=== PATIENT | male | born 1950 | race Caucasian/White ===

== ENCOUNTER 2016-10-26 12:03 | Inpatient (IN) | payer MEDICARE, OTHER ==
[2016-10-26] MEDS ORDERED: DILTIAZEM 5 MG/ML 5 ML VIAL IVP STA ×2 (13:31→15:03)
--- NOTE | 2016-10-26 13:33 | ED ---
General Adult HPI - General Chief complaint: Arrhythmia/Palpitations Stated complaint: afib Time Seen by Provider: 10/26/16 13:19 Source: patient, RN notes reviewed Mode of arrival: wheelchair Limitations: no limitations - History of Present Illness Initial comments: Patient is a pleasant 65-year-old male presenting to the emergency department complaining of tachycardia. Onset was when he woke this morning. Symptoms have been stable. No chest pain. No dyspnea. Patient has had similar symptoms twice previously associated with atrial flutter. Patient states in 2013 who did have cardiac ablation. Patient states at original onset around 2008 he was cardioverted. Patient did check his monitor at home with a heart rate of 120. - Related Data Home Medications Medication Instructions Recorded Confirmed Aspirin 325 mg PO DAILY 10/26/16 10/26/16 Atorvastatin [Lipitor] 10 mg PO DAILY 10/26/16 10/26/16 Fish Oil/Dha/Epa [Fish Oil 1,200 2 cap PO DAILY 10/26/16 10/26/16 mg Fish Oil] Lisinopril [Zestril] 10 mg PO DAILY 10/26/16 10/26/16 Multivitamins, Thera [Multivitamin 1 tab PO DAILY 10/26/16 10/26/16 (formulary)] Allergies Allergy/AdvReac Type Severity Reaction Status Date / Time No Known Allergies Allergy Verified 10/26/16 13:32 Review of Systems ROS Statement: Those systems with pertinent positive or pertinent negative responses have been documented in the HPI. ROS Other: All systems not noted in ROS Statement are negative. Constitutional: Denies: fever Eyes: Denies: eye pain ENT: Denies: ear pain Respiratory: Denies: cough, dyspnea Cardiovascular: Reports: palpitations. Denies: chest pain Endocrine: Denies: fatigue Gastrointestinal: Denies: abdominal pain Genitourinary: Denies: urgency Musculoskeletal: Denies: back pain Skin: Denies: rash Neurological: Denies: weakness Past Medical History Past Medical History: Atrial Flutter, Cancer, Hyperlipidemia, Hypertension Additional Past Medical History / Comment(s): squamous cell carcinoma History of Any Multi-Drug Resistant Organisms: None Reported Past Surgical History: Ablation, Hernia Repair Past Psychological History: No Psychological Hx Reported Smoking Status: Never smoker Past Alcohol Use History: None Reported Past Drug Use History: None Reported General Exam Limitations: no limitations General appearance: alert, in no apparent distress Head exam: Present: atraumatic Eye exam: Present: normal appearance, PERRL ENT exam: Present: normal oropharynx Neck exam: Present: normal inspection Respiratory exam: Present: normal lung sounds bilaterally Cardiovascular Exam: Present: tachycardia, irregular rhythm Expanded Peripheral pulses: 2+: Radial (R), Radial (L), Dorsalis Pedis (R), Dorsalis Pedis (L) GI/Abdominal exam: Present: soft. Absent: tenderness Extremities exam: Present: normal inspection. Absent: pedal edema, calf tenderness Neurological exam: Present: alert Psychiatric exam: Present: normal affect, normal mood Skin exam: Present: normal color Course Vital Signs 10/26/16 10/26/16 10/26/16 12:25 13:40 13:49 Temperature 98.2 F Pulse Rate 122 H 122 H 122 H Respiratory 18 16 Rate Blood Pressure 119/84 143/101 121/92 O2 Sat by Pulse 98 100 Oximetry EKG Findings - EKG Comments: EKG Findings:: Neuro complex tachycardia 122. There does appear to be minimal variation in QRS intervals. TX 176. QRS 122. QT 336. QTc 478. Left axis. Right ventricular conduction delay. LVH. No acute ST change. Medical Decision Making - Medical Decision Making Patient reevaluated and resting comfortably in bed. Patient states heart rate did improve however is still in the low 120s at this point. Patient updated and results and plan. Case discussed with Dr. Steve, who will admit for hospital call. Cardiology will be consulted. Patient will be started on Cardizem drip. Heparin held at this time pending further evaluation of the aorta. - Lab Data Result diagrams: 10/26/16 12:42 10/26/16 12:42 Lab Results 10/26/16 10/26/16 10/26/16 Range/Units 12:42 12:42 12:42 WBC 5.5 (3.8-10.6) k/uL RBC 5.13 (4.30-5.90) m/uL Hgb 15.4 (13.0-17.5) gm/dL Hct 43.7 (39.0-53.0) % MCV 85.1 (80.0-100.0) fL MCH 30.1 (25.0-35.0) pg MCHC 35.3 (31.0-37.0) g/dL RDW 12.7 (11.5-15.5) % Plt Count 187 (150-450) k/uL Neutrophils % 54 % Lymphocytes % 33 % Monocytes % 8 % Eosinophils % 1 % Basophils % 0 % Neutrophils # 3.0 (1.3-7.7) k/uL Lymphocytes # 1.8 (1.0-4.8) k/uL Monocytes # 0.5 (0-1.0) k/uL Eosinophils # 0.0 (0-0.7) k/uL Basophils # 0.0 (0-0.2) k/uL PT (9.0-12.0) sec INR (<1.1) APTT (22.0-30.0) sec Sodium 143 (137-145) mmol/L Potassium 4.7 (3.5-5.1) mmol/L Chloride 107 (98-107) mmol/L Carbon Dioxide 25 (22-30) mmol/L Anion Gap 11 mmol/L BUN 15 (9-20) mg/dL Creatinine 0.90 (0.66-1.25) mg/dL Est GFR (MDRD) Af Amer >60 (>60 ml/min/1.73 sqM) Est GFR (MDRD) Non-Af >60 (>60 ml/min/1.73 sqM) Glucose 81 (74-99) mg/dL Calcium 9.7 (8.4-10.2) mg/dL Magnesium 2.1 (1.6-2.3) mg/dL Total Bilirubin 0.6 (0.2-1.3) mg/dL AST 24 (17-59) U/L ALT 28 (21-72) U/L Alkaline Phosphatase 57 (38-126) U/L Total Creatine Kinase 154 (55-170) U/L CK-MB (CK-2) 1.8 (0.0-2.4) ng/mL CK-MB (CK-2) Rel Index 1.2 Troponin I 0.018 (0.000-0.034) ng/mL Total Protein 7.9 (6.3-8.2) g/dL Albumin 4.5 (3.5-5.0) g/dL TSH 0.811 (0.465-4.680) mIU/L Free T4 1.19 (0.78-2.19) ng/dL Free T3 pg/mL 4.3 (2.8-5.3) pg/ml 10/26/16 Range/Units 12:42 WBC (3.8-10.6) k/uL RBC (4.30-5.90) m/uL Hgb (13.0-17.5) gm/dL Hct (39.0-53.0) % MCV (80.0-100.0) fL MCH (25.0-35.0) pg MCHC (31.0-37.0) g/dL RDW (11.5-15.5) % Plt Count (150-450) k/uL Neutrophils % % Lymphocytes % % Monocytes % % Eosinophils % % Basophils % % Neutrophils # (1.3-7.7) k/uL Lymphocytes # (1.0-4.8) k/uL Monocytes # (0-1.0) k/uL Eosinophils # (0-0.7) k/uL Basophils # (0-0.2) k/uL PT 10.4 (9.0-12.0) sec INR 1.0 (<1.1) APTT 26.4 (22.0-30.0) sec Sodium (137-145) mmol/L Potassium (3.5-5.1) mmol/L Chloride (98-107) mmol/L Carbon Dioxide (22-30) mmol/L Anion Gap mmol/L BUN (9-20) mg/dL Creatinine (0.66-1.25) mg/dL Est GFR (MDRD) Af Amer (>60 ml/min/1.73 sqM) Est GFR (MDRD) Non-Af (>60 ml/min/1.73 sqM) Glucose (74-99) mg/dL Calcium (8.4-10.2) mg/dL Magnesium (1.6-2.3) mg/dL Total Bilirubin (0.2-1.3) mg/dL AST (17-59) U/L ALT (21-72) U/L Alkaline Phosphatase (38-126) U/L Total Creatine Kinase (55-170) U/L CK-MB (CK-2) (0.0-2.4) ng/mL CK-MB (CK-2) Rel Index Troponin I (0.000-0.034) ng/mL Total Protein (6.3-8.2) g/dL Albumin (3.5-5.0) g/dL TSH (0.465-4.680) mIU/L Free T4 (0.78-2.19) ng/dL Free T3 pg/mL (2.8-5.3) pg/ml - Radiology Data Radiology results: image reviewed (Chest x-ray shows no acute process. Prominent aortic knob.) Critical Care Time Critical Care Time: Yes Total Critical Care Time: 33 Disposition Clinical Impression: Atrial fibrillation with RVR Disposition: ADMITTED IP TO THIS HOSP Referrals: Fredrick Vasquez DO [Primary Care Provider] - 1-2 days Time of Disposition: 14:59
[2016-10-26 13:52] LABS: Basophils % (A) 0 %; CH 29.8; CHCM 35.2; Eosinophils % (A) 1 %; HCT 43.7 % (39.0-53.0); HDW 2.83; HGB 15.4 gm/dL (13.0-17.5); Luc # (Auto) 0.18; Luc % (Auto) 3; Lymphocytes # (A) 1.8 k/uL (1.0-4.8); Lymphocytes % (A) 33 %; MCH 30.1 pg (25.0-35.0); MCHC 35.3 g/dL (31.0-37.0); MCV 85.1 fL (80.0-100.0); Mean Platelet Volume 8.1; Monocytes # (A) 0.5 k/uL (0-1.0); Monocytes % (A) 8 %; Neutrophils % (A) 54 %; RBC 5.13 m/uL (4.30-5.90); RDW 12.7 % (11.5-15.5); WBC 5.5 k/uL (3.8-10.6); WBC (Perox) 5.65
[2016-10-26 13:59] LABS: Partial Thromboplastin Time 26.4 sec (22.0-30.0); Prothrombin Time 10.4 sec (9.0-12.0)
[2016-10-26 14:04] LABS: ALT 28 U/L (21-72); AST 24 U/L (17-59); Alkaline Phosphatase 57 U/L (38-126); Anion Gap 11 mmol/L; Blood Urea Nitrogen 15 mg/dL (9-20); Calcium 9.7 mg/dL (8.4-10.2); Carbon Dioxide 25 mmol/L (22-30); Chloride 107 mmol/L (98-107); Glucose 81 mg/dL (74-99); Magnesium 2.1 mg/dL (1.6-2.3); Non-African American GFR(MDRD) >60 (>60 ml/min/1.73 sqM); Potassium 4.7 mmol/L (3.5-5.1); Sodium 143 mmol/L (137-145); Total Bilirubin 0.6 mg/dL (0.2-1.3); Total Protein 7.9 g/dL (6.3-8.2)
[2016-10-26 14:24] LABS: Creatine Kinase MB 1.8 ng/mL (0.0-2.4); Troponin I 0.018 ng/mL (0.000-0.034)
--- NOTE | 2016-10-26 14:39 | XR ---
EXAMINATION TYPE: XR chest 2V DATE OF EXAM: 10/26/2016 2:34 PM COMPARISON: NONE TECHNIQUE: PA and lateral views submitted. HISTORY: A. Fib FINDINGS: The lungs are clear and there is no pneumothorax, pleural effusion, or focal pneumonia. Hypertrophi c change of the spine. Mild ectasia of the thoracic aorta. Arthropathy of the AC joints. IMPRESSION: 1. No acute process. There is ectasia of the aorta. Aortic knob measure somewhat prominent aneurysmal dilation in the differential.
[2016-10-26] MEDS ORDERED: NITROGLYCERIN SL TABS 0.4 MG TAB SUBLINGUAL PRN (15:00)
[2016-10-26] MEDS ORDERED: DILTIAZEM 125 MG in SODIUM CHLORIDE 0.9% 100 ML IV ONE (15:03)
[2016-10-26] MEDS ORDERED: RX INFO: IV CONTRAST WAS GIVEN 1 EACH MISC MISCELLANE PRN (15:03)
--- NOTE | 2016-10-26 16:17 | CT ---
EXAMINATION TYPE: CT angio chest DATE OF EXAM: 10/26/2016 COMPARISON: NONE HISTORY: History of Afib. Chest discomfort CT DLP: 1024.9 mGycm Automated exposure control for dose reduction was used. CONTRAST: CTA scan of the thorax is performed with IV Contrast, patient injected with 100 mL of Omnipaque 350, pulmonary embolism protocol. MIP images are created and reviewed. 3D reconstructed images are creat ed on an independent workstation and reviewed. FINDINGS: LUNGS: The lungs are grossly clear, there is no concerning parenchymal mass or nodule identified. T here is no pleural effusion or pneumothorax seen. The tracheobronchial tree is patent. AORTA: No additional significant abnormality is seen. MEDIASTINUM: There is satisfactory enhancement of the pulmonary artery and its branches, there is no CT evidence for pulmonary embolism. There are no greater than 1 cm hilar or mediastinal lymph nodes. No pericardial effusion is seen. OTHER: No additional significant abnormality is seen. Proximal descending aorta measures approximately 3.5 cm, ascending aorta measures 3.3 cm. IMPRESSION: PULMONARY EMBOLISM IS NOT EVIDENT. AORTIC ECTASIA.
[2016-10-26] MEDS ORDERED: HEPARIN SODIUM,PORCINE 5,000 UNIT/ML 1 ML VIAL IV PRN (17:03)
[2016-10-26] MEDS ORDERED: HEPARIN SODIUM,PORCINE/D5W PMX 25,000 UNIT in DEXTROSE/WATER 1 500ML.BAG IV SCH (18:00)
[2016-10-26] MEDS ORDERED: NITROGLYCERIN OINT 1 INCH/GM PACKET TOPICAL SCH (18:00)
[2016-10-26 18:12] LABS: Basophils % (A) 0 %; CH 29.8; CHCM 33.7; Eosinophils % (A) 1 %; HCT 47.2 % (39.0-53.0); HDW 2.66; HGB 15.6 gm/dL (13.0-17.5); Luc # (Auto) 0.16; Luc % (Auto) 3; Lymphocytes # (A) 1.9 k/uL (1.0-4.8); Lymphocytes % (A) 33 %; MCH 29.4 pg (25.0-35.0); MCHC 33.1 g/dL (31.0-37.0); MCV 88.8 fL (80.0-100.0); Mean Platelet Volume 7.4; Monocytes # (A) 0.4 k/uL (0-1.0); Monocytes % (A) 6 %; Neutrophils # (A) 3.5 k/uL (1.3-7.7); Neutrophils % (A) 58 %; RBC 5.32 m/uL (4.30-5.90); RDW 12.8 % (11.5-15.5); WBC 5.9 k/uL (3.8-10.6); WBC (Perox) 5.91
[2016-10-26 18:13] LABS: INR 1.1 (<1.1); Partial Thromboplastin Time 25.9 sec (22.0-30.0); Prothrombin Time 10.9 sec (9.0-12.0)
[2016-10-26 18:36] LABS: Creatine Kinase MB 1.8 ng/mL (0.0-2.4); Troponin I 0.028 ng/mL (0.000-0.034)
--- NOTE | 2016-10-26 22:10 | HP ---
Patient is a 65-year-old who came in with complaints of tachycardia and irregular rhythm. Patient has history of atrial fibrillation, underwent ablation procedure by [facility] cardiology group. The patient's symptoms started at 8:00 a.m. today., Patient checked his pulse and patient was found to have rapid heart rate and came to the ER. Patient was found to be in atrial fibrillation with rapid ventricular rate. Patient denied any dehydration. Denied any fever, chills. Patient denied any nausea, vomiting, abdominal pain. Patient denied any pain signs or symptoms of sepsis, including fever or chills, cough or dysuria. Patient is on aspirin at home. The patient is 65 years old and does not appear to have any congestive heart failure history and his CHADS-VASc score appears to be around 1, the risk factor being hypertension only. Patient was started on Cardizem. Patient is presently on 5 mg of Cardizem. Patient will be started on heparin drip at low intensity and Cardiology will be consulted. REVIEW OF SYSTEMS: CONSTITUTIONAL: No fever, no malaise, no fatigue. HEENT: No recent visual problems or hearing problems. Denied any sore throat. CARDIOVASCULAR: As described in HPI. Patient denied any chest pain. Patient is on nitro patch, which will be discontinued. Patient denied any lightheadedness at this point of time. PULMONARY: No shortness of breath, no cough, no hemoptysis. GASTROINTESTINAL: No diarrhea, no nausea, no vomiting, no abdominal pain. Normoactive bowel sounds. NEUROLOGICAL: No headaches, no weakness, no numbness. HEMATOLOGICAL: Denies any bleeding or petechiae. GENITOURINARY: Denies any burning micturition, frequency, or urgency. MUSCULOSKELETAL/RHEUMATOLOGICAL: Denies any joint pain, swelling, or any muscle pain. ENDOCRINE: Denies any polyuria or polydipsia. The rest of the 14 point review of systems is negative. Home medications include: 1. Aspirin. 2. Atorvastatin. 3. Lisinopril. 4. Multivitamin supplementation. No known allergies. Past medical history is significant for atrial fibrillation, hyperlipidemia, hypertension, history of skin squamous cell carcinoma which is in remission. Patient has cardiac ablation, hernia repair. SOCIAL HISTORY: Denied any smoking, alcohol abuse or any drug abuse. FAMILY HISTORY: Significant for cancer in family. PHYSICAL EXAMINATION: VITAL SIGNS: Temperature 98.3, pulse of 104, respiratory rate of 16, blood pressure is 122/84, saturating at 98% on room air. GENERAL: The patient is alert and oriented x3, not in any acute distress. Well developed, well nourished. HEENT: Pupils are round and equally reacting to light. EOMI. No scleral icterus. No conjunctival pallor. Normocephalic, atraumatic. No pharyngeal erythema. No thyromegaly. CARDIOVASCULAR: S1 and S2 present. Patient is irregular rate, irregular rhythm, tachycardic. No murmurs, rubs or gallops are appreciated. PULMONARY: Chest is clear to auscultation, no wheezing or crackles. ABDOMEN: Soft, nontender, nondistended, normoactive bowel sounds. No palpable organomegaly. MUSCULOSKELETAL: No joint swelling or deformity. EXTREMITIES: No cyanosis, clubbing, or pedal edema. NEUROLOGICAL: Gross neurological examination did not reveal any focal deficits. SKIN: No rashes. CBC, CMP, CT angio of the chest are essentially within normal limits and CT angio of chest did not show any pulmonary embolism or pneumonic process. ASSESSMENT AND PLAN: 1. Atrial fibrillation. Precipitating factor is unknown. Management as mentioned above. 2. Hyperlipidemia. 3. Hypertension. Hold off on lisinopril, as patient is on Cardizem and blood pressure is expected to go down. Continue with the Lipitor. 4. Patient will be started on anticoagulation. Patient's symptoms are less than 12 hours' duration. Symptom onset is around 8:00 a.m.
[2016-10-27 01:49] LABS: Creatine Kinase MB 2.1 ng/mL (0.0-2.4); Troponin I 0.02 ng/mL (0.000-0.034)
[2016-10-27] MEDS: ATORVASTATIN 10 MG TAB PO SCH (08:25)
[2016-10-27 08:43] LABS: Basophils % (A) 0 %; CH 29.4; CHCM 33.2; Eosinophils # (A) 0.1 k/uL (0-0.7); Eosinophils % (A) 1 %; HCT 45.9 % (39.0-53.0); HDW 2.66; HGB 15.2 gm/dL (13.0-17.5); Luc # (Auto) 0.15; Luc % (Auto) 3; Lymphocytes # (A) 1.9 k/uL (1.0-4.8); Lymphocytes % (A) 37 %; MCH 29.4 pg (25.0-35.0); MCHC 33.1 g/dL (31.0-37.0); MCV 88.9 fL (80.0-100.0); Mean Platelet Volume 7.3; Monocytes # (A) 0.2 k/uL (0-1.0); Monocytes % (A) 4 %; Neutrophils # (A) 2.8 k/uL (1.3-7.7); Neutrophils % (A) 54 %; RBC 5.16 m/uL (4.30-5.90); RDW 12.8 % (11.5-15.5); WBC 5.1 k/uL (3.8-10.6); WBC (Perox) 4.98
[2016-10-27] MEDS ORDERED: ASPIRIN 325 MG TAB PO SCH (09:00)
--- NOTE | 2016-10-27 09:11 | ECHOF ---
Referral Reason:a fib MEASUREMENTS -------- HEIGHT: 177.8 cm WEIGHT: 104.3 kg BP: 133/57 RVIDd: 3.0 cm (< 3.3) IVSd: 1.4 cm (0.6 - 1.1) LVIDd: 4.7 cm (3.9 - 5.3) LVPWd: 1.4 cm (0.6 - 1.1) IVSs: 1.9 cm LVIDs: 2.8 cm LVPWs: 1.7 cm LA Diam: 3.8 cm (2.7 - 3.8) LAESV Index (A-L): 21.69 ml/m Ao Diam: 4.1 cm (2.0 - 3.7) AV Cusp: 2.5 cm (1.5 - 2.6) MV EXCURSION: 18.395 mm (> 18.000) MV EF SLOPE: 141 mm/s (70 - 150) EPSS: 0.5 cm RAP: 5.00 mmHg RVSP: 22.27 mmHg FINDINGS -------- Atrial fibrillation. This was a technically difficult study with suboptimal apical views. The left ventricular size is normal. There is moderate concentric left ventricular hypertrophy. Overall left ventricular systolic function is mildly impaired with, an EF between 45 - 50 %. The right ventricle is normal in size and function. Normal LA size by volume 22+/-6 ml/m2. The right atrium is normal in size. 1.5mg of Definity was utilized for enhancement of images The aortic valve is trileaflet and appears structurally normal. The mitral valve is normal. There is trace mitral regurgitation. Mild tricuspid regurgitation present. Right ventricular systolic pressure is normal at < 35 mmHg. Trace/mild (physiologic) pulmonic regurgitation. The aortic root is dilated measuring 4.1cm. Normal inferior vena cava with normal inspiratory collapse consistent with estimated right atrial pressure of 5 mmHg. There is no pericardial effusion. CONCLUSIONS -------- 1. Atrial fibrillation. 2. There is trace mitral regurgitation. 3. Mild tricuspid regurgitation present. 4. Right ventricular systolic pressure is normal at < 35 mmHg. 5. Trace/mild (physiologic) pulmonic regurgitation. 6. The aortic root is dilated measuring 4.1cm. 7. There is no pericardial effusion. 8. This was a technically difficult study with suboptimal apical views. 9. The left ventricular size is normal. 10. There is moderate concentric left ventricular hypertrophy. 11. Overall left ventricular systolic function is mildly impaired with, an EF between 45 - 50 %. 12. Normal LA size by volume 22+/-6 ml/m2. 13. 1.5mg of Definity was utilized for enhancement of images 14. The aortic valve is trileaflet and appears structurally normal. 15. The mitral valve is normal. POLYGRAPH EXAMINER: Gretel Melgar RDCS
[2016-10-27 09:32] LABS: Cholesterol 161 mg/dL (<200); HDL Cholesterol 54 mg/dL (40-60); Triglycerides 89 mg/dL (<150)
--- NOTE | 2016-10-27 11:03 | CONS ---
DATE OF CONSULTATION: Electrophysiology consultation. Mr. Yaw Brewster is a 65-year-old male patient who presented with palpitations. His 12-lead ECG showed an atrial tachycardia with cycle length of about 240 ms, upright atrial electrograms in V1, upright in the inferior leads, bifid in lead I, bifid negative in aVR and positive in all precordial leads. He denies any chest discomfort. No shortness of breath. No tiredness, fatigue. The only symptom is palpitations and he recognizes because he has had the arrhythmia before. Past medical history of atrial flutter, status post ablation by ( ) 2013. PAST MEDICAL HISTORY: He denies any diabetes. He does have dyslipidemia and is on atorvastatin. He has a history of hypertension and is on lisinopril. He also had difficult rate control, but he would also slow down quite on AV node blocking drugs and he has atrial flutter, which actually brought to the hospital and is quite symptomatic. He states he was on metoprolol at a very low dose. I have asked him to get the dose and the exact dose from home and I am starting 12.5 mg p.o. b.i.d. and ( ) we should try to stop the ( ). REVIEW OF SYSTEMS: No fever, chills or rigors. No cough or expectoration. No nausea, vomiting or diarrhea. No hematuria or dysuria. No strokes or seizures. No skin lesions or musculoskeletal complaints. On examination, his blood pressure is 124/73 mmHg, heart rate in the 50s and 60s, irregular. He is afebrile, 97 degrees Fahrenheit. Head and neck examination is normal. Heart sounds are irregular but normal. No murmurs, no gallops. Breath sounds are normal. No rhonchi. No crackles. Extremities are warm, no edema. IMPRESSION: 1. History of atrial flutter, status post ablation, by Dr. Do ) in 2013 in [facility]. 2. Patient presenting with an atrial tachycardia with a cycle length of about 240 ms. 3. Hypertension. 4. Age over 65. 5. PATRIZIA VASC score of 2. 6. Dyslipidemia, on treatment. SUGGEST: 1. From electrophysiology standpoint, his PATRIZIA VASC score is 2 and therefore he is a candidate for anticoagulation with Coumadin or one of the newer agents. Aspirin is not indicated. I will start him on Eliquis 5 mg twice daily. This is a life-long recommendation. 2. Rate control of this and anticoagulation and I would recommend an EP study and ablation for the atrial tachycardia, rather than any drug therapy. I would not cardiovert this gentleman. This tachycardia needs to be mapped. 3. I have asked him to get the EKG of the atrial flutter he experienced 2013 to see if he had the similar morphology or not.
[2016-10-27] MEDS: APIXABAN 5 MG TAB PO SCH ×2 (11:16→20:05)
[2016-10-27] MEDS: METOPROLOL TARTRATE 12.5 MG TAB PO SCH ×2 (11:16→20:05)
--- NOTE | 2016-10-27 19:33 | PN ---
Patient is admitted with atrial fibrillation with rapid ventricular rate. Patient's heart rate is not well controlled yet and patient was started on beta carola today by cardiology and patient was started on Eliquis and patient's ejection fraction has come down a little bit which is now 45 to 50%. Hopefully this is temporary. Although patient is not in congestive heart failure exacerbation. Temporary depressed ejection fraction can be from atrial fibrillation itself. REVIEW OF SYSTEMS: CARDIOVASCULAR: No chest pain, no orthopnea, no PND, no palpitations. PULMONARY: Denied any shortness of breath. No cough or hemoptysis. GASTROINTESTINAL: No diarrhea, nausea or vomiting. No abdominal pain. Normoactive bowel sounds. NEUROLOGIC: No headaches, no weakness, no numbness. Medications were reviewed. PHYSICAL EXAMINATION: VITAL SIGNS: Temperature 99.2, pulse 32, respiratory rate of 16, blood pressure is 119/66, saturating at 97% on room air. GENERAL: The patient is alert and oriented x3, not in any acute distress. Well developed, well nourished. HEENT: Pupils are round and equally reacting to light. EOMI. No scleral icterus. No conjunctival pallor. Normocephalic, atraumatic. No pharyngeal erythema. No thyromegaly. CARDIOVASCULAR: No murmurs, rubs, or gallops. I did not appreciate any JVD. Irregularly irregular rhythm. Tachycardic. PULMONARY: Chest is clear to auscultation, no wheezing or crackles. ABDOMEN: Soft, nontender, nondistended, normoactive bowel sounds. No palpable organomegaly. MUSCULOSKELETAL: No joint swelling or deformity. EXTREMITIES: No cyanosis, clubbing, or pedal edema. NEUROLOGICAL: Gross neurological examination did not reveal any focal deficits. SKIN: No rashes. LABORATORY DATA: CBC, basic metabolic profile essentially within normal limits. His LDL is 89. ASSESSMENT AND PLAN: 1. Atrial fibrillation with rapid ventricular rate, management as mentioned above. 2. Congestive heart failure, possible acute systolic dysfunction from atrial fibrillation itself and hopefully it will improve down the line. 3. Hyperlipidemia. 4. Hypertension. Regarding hypertension, because blood pressure is on the low normal side, because of atrial fibrillation, we will hold off on Lisinopril.
[2016-10-28 06:13] LABS: Basophils % (A) 0 %; CH 29.4; CHCM 33.6; Eosinophils # (A) 0.1 k/uL (0-0.7); Eosinophils % (A) 2 %; HCT 43.7 % (39.0-53.0); HDW 2.62; HGB 14.4 gm/dL (13.0-17.5); Luc # (Auto) 0.14; Luc % (Auto) 3; Lymphocytes # (A) 2.4 k/uL (1.0-4.8); Lymphocytes % (A) 45 %; MCV 87.8 fL (80.0-100.0); Mean Platelet Volume 7.3; Monocytes # (A) 0.4 k/uL (0-1.0); Monocytes % (A) 8 %; Neutrophils # (A) 2.2 k/uL (1.3-7.7); Neutrophils % (A) 43 %; RBC 4.98 m/uL (4.30-5.90); RDW 13.1 % (11.5-15.5); WBC 5.2 k/uL (3.8-10.6); WBC (Perox) 5.19
[2016-10-28] MEDS: ATORVASTATIN 10 MG TAB PO SCH (08:42)
[2016-10-28] MEDS: APIXABAN 5 MG TAB PO SCH (08:42)
[2016-10-28 10:35] VITALS: RESP 16
--- NOTE | 2016-10-28 11:22 | PN ---
DATE OF CONSULTATION: Mr. Brewster came in with palpitations. He has now converted to sinus rhythm. He had sinus bradycardia in the mid 40s and therefore metoprolol is now being discontinued. In the past, he was intolerant of beta blockers and he got a very small dose of beta blockers when he was ( ). At that time he had atrial flutter ablation. He is doing well from a cardiac standpoint. Head and neck examination is normal today. Heart sounds S1, S2 normal regular. Breath sounds are normal. He is ambulating in the hallways. He is afebrile, 97.6 degrees Fahrenheit, pulse rate in the 50s, blood pressure 137/71 mmHg. Suggest: He may go home today. I will see him in the office as an outpatient. I did review his echo. His ejection fraction is mildly reduced but he was in atrial tachycardia at that time. He will continue anticoagulation. His PATRIZIA VASC score is 2. He has history of atrial flutter. He has hypertension and he is 65 years of age. I will work him up as an outpatient regarding his cardiomyopathy as well as antiarrhythmic therapy for atrial tachycardia and ( ) EP study and radiofrequency ablation. His TSH is normal.
[2016-10-28 12:00] VITALS: BP 125/72; PULSE 59; TEMP 98.5
--- NOTE | 2016-10-29 13:49 | DS ---
DATE OF ADMISSION: 10/26/2016 DATE OF DISCHARGE: 10/28/2016 Patient is admitted with atrial fibrillation with rapid ventricular rate and patient EF is around 40 to 45%. Because of the low blood pressure we will cut down the Lisinopril because of her minimally depressed ejection fraction which is expected to improve once improvement with atrial fibrillation. I will go ahead and discharge him on 5 mg of Lisinopril. Patient will be discharged today. Patient beta carola was discontinued and prescription for as needed beta carola was given by Dr. Cameron as patient had significant bradycardia secondary to that and patient will undergo EP study as an outpatient. Patient was started on Eliquis. Patient is clinically doing well. The patient was seen and examined on the day of discharge. PHYSICAL EXAMINATION: GENERAL: The patient is alert and oriented x3, not in any acute distress. Well developed, well nourished. HEENT: Pupils are round and equally reacting to light. EOMI. No scleral icterus. No conjunctival pallor. Normocephalic, atraumatic. No pharyngeal erythema. No thyromegaly. CARDIOVASCULAR: S1 and S2 present. No murmurs, rubs, or gallops. PULMONARY: Chest is clear to auscultation, no wheezing or crackles. ABDOMEN: Soft, nontender, nondistended, normoactive bowel sounds. No palpable organomegaly. MUSCULOSKELETAL: No joint swelling or deformity. EXTREMITIES: No cyanosis, clubbing, or pedal edema. NEUROLOGICAL: Gross neurological examination did not reveal any focal deficits. SKIN: No rashes. FINAL DIAGNOSES: 1. Atrial fibrillation, rapid ventricular rate, presently rate controlled at this point of time. 2. Congestive heart failure, possible acute systolic dysfunction due to atrial fibrillation, hopefully it will improve. Patient will not require Lasix at this point of time. Will be given 5 mg of Lisinopril. 3. Hypertension. 4. Hyperlipidemia. Please refer to my depart summary for further details of discharge medications. Discharge diet: Cardiac. CHF discharge instructions will provided. Activity as tolerated. Patient will follow with Dr. Juve Cameron in one week, Dr. Delio Vasquez in 3 to 7 days. Spent greater than 35 minutes in total discharge process.
== END 2016-10-28 16:21 | disposition home or self-care (01) | DRG 308 ==
LOC: EC 12:03 → 6SEL 15:00
PROVIDERS: ADMIT Internal Medicine; ATTEND Internal Medicine
DX: I48.91 Unspecified atrial fibrillation (principal); I50.23 Acute on chronic systolic (congestive) heart failure; I11.0 Hypertensive heart disease with heart failure; E78.5 Hyperlipidemia, unspecified; I47.1 Supraventricular tachycardia; I48.92 Unspecified atrial flutter; Z79.01 Long term (current) use of anticoagulants; Z79.82 Long term (current) use of aspirin; Z79.899 Other long term (current) drug therapy; Z85.828 Personal history of other malignant neoplasm of skin
CPT/HCPCS: 36415; 71020; 71275; 80053; 80061; 82272; 82550; 82553; 83735; 84439; 84443; 84481; 84484; 85025; 85610; 85730; 93005; 93306; 96365; 96376; 99291

== ENCOUNTER 2017-02-07 12:57 | Day surgery (SDC) | payer MEDICARE, OTHER ==
[2017-01-30 12:01] VITALS: BMI 33.7
[~2017-02-07 12:57] MED LIST: SODIUM CHLORIDE 0.9% 1,000 ML IV SCH
[2017-02-07] MEDS ORDERED: MIDAZOLAM 2 MG/2 ML VIAL ONE (15:03)
[2017-02-07] MEDS ORDERED: NEOSTIGMINE 1 MG/ML 10 ML VIAL ONE (15:03)
[2017-02-07] MEDS ORDERED: PROPOFOL 10 MG/ML 20 ML VIAL IV ONE (15:03)
[2017-02-07] MEDS ORDERED: SUCCINYLCHOLINE CHLORIDE 100 MG/5 ML SYR IV ONE (15:03)
[2017-02-07] MEDS ORDERED: diphenhydrAMINE 50 MG/ML 1 ML VIAL ONE (15:03)
[2017-02-07] MEDS ORDERED: fentaNYL (PF) 50 MCG/ML 2 ML AMP ONE (15:03)
[2017-02-07] MEDS ORDERED: ROCURONIUM BROMIDE 10 MG/ML 10 ML VIAL IV ONE (15:03)
[2017-02-07] MEDS ORDERED: PHENYLEPHRINE-0.9% NACL SYG 1 MG/10 ML SYRINGE ONE (15:03)
[2017-02-07] MEDS ORDERED: ISOPROTERENOL 250 MCG/1.25 ML SYR IV ONE (15:03)
[2017-02-07] MEDS ORDERED: GLYCOPYRROLATE 0.2 MG/ML 2 ML VIAL ONE (15:03)
[2017-02-07] MEDS ORDERED: LIDOCAINE 2% INJ 20 MG/ML SQ ONE (15:48)
[2017-02-07] MEDS ORDERED: HEPARIN SODIUM,PORCINE/D5W PMX 25,000 UNIT in DEXTROSE/WATER 1 500ML.BAG IV ONE (16:08)
[2017-02-07] MEDS ORDERED: HEPARIN SODIUM (1,000 UNIT/ML) 1,000 UNIT in SODIUM CHLORIDE 0.9% 1,000 ML IRRIGATION ONE (17:00)
[2017-02-07] MEDS ORDERED: ACETAMINOPHEN TAB 325 MG TAB PO PRN (18:48)
--- NOTE | 2017-02-07 21:19 | CE ---
CARDIAC ELECTROPHYSIOLOGY REPORT The patient is a 66 -year-old who was admitted to the hospital with palpitations. He was found to be in atrial tachycardia. Cycle length of about 240 milliseconds. He has undergone atrial flutter ablation in the past at [facility] by Dr. Yanes. This was in 2013. The patient was brought to the EP lab in a fasting state. Written informed consent was obtained prior to the procedure. The right and left groin were prepped and draped as per protocol and 1% lidocaine was used for local anesthesia. Two venous sheaths were placed in the right femoral vein and another two venous sheaths placed in the left femoral vein. Via these, diagnostic catheters were placed in the right heart (High right atrial catheter, HIS bundle catheter, RV catheter and coronary sinus catheter). Later an intracardiac echo catheter as well as the long sheath for the mapping and ablation catheter were placed. Simply with catheter placement, the atrial tachycardia was initiated. This morphology was consistent with atrial flutter. Coronary sinus catheter revealed concentric activation with cycle length of about 274 milliseconds. Entrainment mapping was performed and atrial flutter was proven. Entering mapping was proven. Baseline measurements were as follows. Sinus cycle length 1076 milliseconds. AR 142 milliseconds, QRS 101 milliseconds, QT 431 milliseconds. AH interval was 99 milliseconds. HV interval 50 milliseconds. Sinus node recovery times of 600, 500 and 400 milliseconds were 1471, 1344, 1164 milliseconds. Corresponding corrected sinus node recovery times were within normal limits. AV node Wenckebach block 400 milliseconds, VA Wenckebach block 530 milliseconds. No delta waves. No slow pathway conduction with straight pacing. However, with extra stimulation in the coronary sinus, echo beats were induced at 500/240 milliseconds during Isuprel recovery. Electrophysiologic testing was performed on Isuprel. 3D mapping of the acute tricuspid response was performed and mechanical termination of atrial flutter was noted as mapping was performed in an area which appeared to have good voltage. Subsequently, the voltage mapping of the was performed and more normal voltage areas were noted in this area consistent with a gap in the previously made flutter line. When the ablation catheter made contact with this area of near normal voltage, (gap in the flutter line) atrial fibrillation was induced. This happened on 2 different occasions. However, at the end of the procedure when atrial flutter ablation was completed and a complete anatomic was made and there was no further induction of atrial fibrillation. Importantly, atrial flutter also terminated during RF ablation. The cava tricuspid line of block was made. Differential pacing was performed and voltage mapping was performed after the ablation and this was a complete anatomic line which demonstrated non-capture along the line as well as complete and scar was noted with voltage mapping after the ablation. Isthmus conduction time was greater than 155 milliseconds. EP testing was performed on Isuprel and only echo beats were induced with coronary sinus extra stimulation. Atrial fibrillation could not be induced after A- flutter ablation was completed. All catheters were then removed at the end of the procedure. The patient was transferred back to telemetry. RESULTS: 1. Diagnostic EP study revealing typical atrial flutter as a mechanism of tachycardia with a gap in the previously made RF line in 2013 at [facility]. 2. Successful atrial flutter ablation with complete block. 3. Atrial fibrillation was also reduced when the area of the gap in the line was mapped (mechanical contact with this area). Once the atrial flutter line was completed I could not induce atrial fibrillation with the same maneuver. PLAN: Continue anticoagulation and watch future episodes of atrial fibrillation. The patient tolerated the procedure well without acute complications. Please note that this was a very short isthmus but the procedure took a long time because of the voltation in that area and general anesthesia was used to obtain good contact and an RF ablation was performed during periods of apnea for good stability. The patient tolerated the procedure well without any acute complications. MMODL / IJN: [id number] /
--- NOTE | 2017-02-07 21:26 | LTR ---
Date: Dear Dr. Kramer: I had the pleasure of seeing Mr. Yaw Brewster in electrophysiology follow up. Yaw underwent atrial flutter ablation three years back at [facility] by Dr. George. He came in for atrial tachycardia and this was found to be atrial flutter. There is a gap in the previously made line. He underwent successful ablation with termination of atrial flutter. Atrial fibrillation was also inducible initially. I have recommended that he continue with anticoagulation on account of his PATRIZIA Vasc score and watch further episodes of atrial fibrillation in the future. If you have any questions, please do not hesitate to give me a call. Sincerely, MMBHUPENDRAL / IJN: [id number] /
[2017-02-07] MEDS: APIXABAN 5 MG TAB PO SCH (23:33)
--- NOTE | 2017-02-08 07:40 | P.DS ---
Providers Attending physician: Juve Cameron Primary care physician: [facility] Course: Patient is doing well. He has been ablating in the hallways. He denies any discomfort in the chest no pleuritic chest discomfort no shortness of breath no dizziness lightheadedness groins have healed well. No hematoma no issues overnight Twelve-lead ECG shows sinus rhythm normal MS and normal ST segments incomplete right bundle branch block pattern normal variant On examination he is afebrile 97.6F pulse rate in the 50s normal respirations blood pressure 122/65 mmHg Heart sounds S1 and S2 are normal No murmurs no gallops no rub Breath sounds are normal no rhonchi no crackles Extremities are warm no edema Impression Recurrent symptomatic atrial flutter, paroxysmal, status post ablation in 2013 at [facility] Status post redo ablation., Under general anesthesia Successful ablation for atrial flutter Hypertension PATRIZIA VASC score of at least 2 Plan Continue long-term anticoagulation for stroke prevention Watch for future episodes of atrial fibrillation Hypertension management, low-salt diet gradual weight loss Follow-up in the office next week for a groin check Follow-up with Dr. Shukla in about 6-8 weeks Patient Condition at Discharge: Stable Plan - Discharge Summary New Discharge Prescriptions: No Action Multivitamins, Thera [Multivitamin (formulary)] 1 tab PO DAILY Fish Oil/Dha/Epa [Fish Oil 1,200 mg Fish Oil] 2 cap PO DAILY Atorvastatin [Lipitor] 10 mg PO DAILY RX: Lisinopril [Zestril] 5 mg PO DAILY #30 tab Apixaban [Eliquis] 5 mg PO BID #30 tab Discharge Medication List Atorvastatin [Lipitor] 10 mg PO DAILY 10/26/16 [History] Fish Oil/Dha/Epa [Fish Oil 1,200 mg Fish Oil] 2 cap PO DAILY 10/26/16 [History] Multivitamins, Thera [Multivitamin (formulary)] 1 tab PO DAILY 10/26/16 [History ] Apixaban [Eliquis] 5 mg PO BID #30 tab 10/28/16 [Rx] RX: Lisinopril [Zestril] 5 mg PO DAILY #30 tab 10/28/16 [Rx] Activity/Diet/Wound Care/Special Instructions: Post EP study - Ablation instructions 1. Keep access sites dry for 2 days. 2. No heavy lifting or straining for 2 days. 3. Avoid bending the hips repeatedly for 2 days. 4. You may go up and down stairs slowly Call if the following is noted 1. Bleeding, increasing swelling or pain at the access sites. 2. Increasing chest discomfort, especially upon taking a deep breath. 3. Increasing shortness of breath, at rest or with exertion. 4. Undue cough / phlegm 5. Difficulty or pain while swallowing. 6. Pain or change in color in the extremities. 7. Fever, chills, rigors. 8. Increasing headache or neurologic symptoms. 9. Dizziness, fainting, palpitations Discharge Disposition: HOME SELF-CARE
[2017-02-08 07:57] VITALS: BP 153/74; PULSE 80; RESP 18; TEMP 97.7
[2017-02-08] MEDS: APIXABAN 5 MG TAB PO SCH (08:35)
[2017-02-08] MEDS ORDERED: ATORVASTATIN 10 MG TAB PO SCH (09:00)
[2017-02-08] MEDS ORDERED: LISINOPRIL 5 MG TAB PO SCH (09:00)
== END 2017-02-08 12:50 | disposition home or self-care (01) ==
LOC: CATHEP 12:57 → 3OBS 18:29 → CATHEP 02-08 12:50
PROVIDERS: ATTEND Internal Medicine Clinical Cardiac Electrophysiology
DX: I47.1 Supraventricular tachycardia (principal); I48.92 Unspecified atrial flutter; Z79.899 Other long term (current) drug therapy; Z79.01 Long term (current) use of anticoagulants; I48.91 Unspecified atrial fibrillation; I49.5 Sick sinus syndrome; I10 Essential (primary) hypertension; E78.5 Hyperlipidemia, unspecified; K21.9 Gastro-esophageal reflux disease without esophagitis
CPT/HCPCS: 93623; 93662; 93613; 93653; C1894; C1769; C1893; C1730 ×3; C1759; C1732; J2001; J2250; J1200; J2710; J1644 ×2; J3010; J2370; J0330; J2704

== ENCOUNTER 2018-08-16 23:28 | Emergency (ER) | payer MEDICARE, OTHER ==
[2018-08-16 23:41] VITALS: BP 150/86; PULSE 56; RESP 16; TEMP 98.3
[2018-08-17] MEDS ORDERED: HYDROcodone/APAP 5-325MG 1 EACH TAB PO STA (00:38)
[2018-08-17] MEDS ORDERED: KETOROLAC 30 MG/ML 1 ML VIAL IM STA (00:39)
[2018-08-17] MEDS ORDERED: methylPREDNISolone SOD SUCCI 125 MG/2 ML VIAL IM ONE (00:39)
--- NOTE | 2018-08-17 01:18 | CT ---
EXAM: CT Lumbar Spine Without Intravenous Contrast CLINICAL HISTORY: ITS.REASON CT Reason: Pain TECHNIQUE: Axial computed tomography images of the lumbar spine without intravenous contrast. CTDI is 23 mGy and DLP is 772.7 mGy-cm. This CT exam was performed using one or more of the following dose reduction techniques: automated exposure control, adjustment of the mA and/or kV according to patient size, and/or use of iterative reconstruction technique. COMPARISON: No relevant prior studies available. FINDINGS: Vertebrae: Displaced narrowing with marginal hypertrophic osteophyte changes and vacuum phenomenon is noted at L4-5 and L5-S1 levels. Facet hypertrophic changes are noted inferiorly. No acute fracture. Discs/spinal canal/neural foramina: Mild osseous neural foraminal encroachment noted on the right at L4-5 and L5-S1 levels and on the left at L5-S1 level. No spinal canal stenosis. Soft tissues: Unremarkable. Kidneys and ureters: Probable cortical cyst involving the posterior aspect of the superior left kidney measuring 15 mm. Detailed evaluation limited. IMPRESSION: No acute osseous traumatic injury or abnormal alignment. Disc spondylosis most significant at L4-5 and L5-S1. No significant osseous central canal stenosis or significant osseous neural foraminal narrowing. Detailed evaluation limited on this noncontrast CT examination.
[2018-08-17] MEDS ORDERED: ACET/COD 300 MG/30 MG STARTER PACK 6 TAB BTL PO STA (02:01)
--- NOTE | 2018-08-17 02:01 | ED ---
Back Pain HPI - General Chief Complaint: Back Pain/Injury Stated Complaint: Back pain Time Seen by Provider: 08/17/18 00:04 Source: patient Limitations: no limitations - History of Present Illness Initial Comments: 67-year-old male patient presents to the emergency department today for evaluation of right lower back pain that radiates down the right leg. Patient states that he started having increased pain over the last week. States he did see his primary care physician was given an injection of a steroid and then a steroid Dosepak to take. States this did improve symptoms somewhat then today the pain worsened again. Patient states the pain radiates down the outside of his right leg down to his foot. Patient states his right leg does feel more weak than the other side. States that when symptoms initially started he had a "floppy foot" on the right side. Patient states he has been doing range of motion exercises to improve but the strength is not improved fully. He denies any fevers or chills with this. Denies any saddle anesthesia or loss of bowel or bladder control. States he is having some numbness and tingling to the right great toe. Denies any known injury. States he did have sciatica once a long time ago but has not had back problems since. Patient denies any recent rash, shortness breath, chest pain, abdominal pain, nausea, vomiting, diarrhea, constipation, back pain, dizziness, weakness, hematuria, dysuria, urinary urgency, urinary frequency, headache, visual changes, or any other complaints. - Related Data Home Medications Medication Instructions Recorded Confirmed Atorvastatin [Lipitor] 10 mg PO DAILY 10/26/16 02/07/17 Fish Oil/Dha/Epa [Fish Oil 1,200 2 cap PO DAILY 10/26/16 02/07/17 mg Fish Oil] Multivitamins, Thera [Multivitamin 1 tab PO DAILY 10/26/16 02/07/17 (formulary)] Previous Rx's Medication Instructions Recorded Apixaban [Eliquis] 5 mg PO BID #30 tab 10/28/16 Lisinopril [Zestril] 5 mg PO DAILY #30 tab 10/28/16 Ibuprofen [Motrin] 600 mg PO Q8HR PRN #30 tab 08/17/18 predniSONE 50 mg PO DAILY #5 tablet 08/17/18 Allergies Allergy/AdvReac Type Severity Reaction Status Date / Time No Known Allergies Allergy Verified 08/16/18 23:41 Review of Systems ROS Statement: Those systems with pertinent positive or pertinent negative responses have been documented in the HPI. ROS Other: All systems not noted in ROS Statement are negative. 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 History of Any Multi-Drug Resistant Organisms: None Reported Past Surgical History: Ablation, Hernia Repair Additional Past Surgical History / Comment(s): cardioversion 2008, cardiac abl ation 2013, x2 cyst removed from neck, [id number]. squamous cell skin ca removed. Past Anesthesia/Blood Transfusion Reactions: Previous Problems w/ Anesthesia Additional Past Anesthesia/Blood Transfusion Reaction / Comment(s): took a while to wake up after aa Past Psychological History: No Psychological Hx Reported Smoking Status: Never smoker - Past Family History Father Additional Family Medical History / Comment(s): at age 48-got electrocuted. 2 uncles had cabgs Mother Family Medical History: Cancer Additional Family Medical History / Comment(s): at age 87 drom cervical cancer Brother(s) Family Medical History: Coronary Artery Disease (CAD) Additional Family Medical History / Comment(s): cabg General Exam Limitations: no limitations General appearance: alert, in no apparent distress, other (Social well- developed, well-nourished adult male patient in no acute distress. Vital signs upon presentation are temperature 98.3F, pulse 56, respirations 16, blood pressure 150/86, pulse ox 98% on room air.) Eye exam: Present: normal appearance, PERRL, EOMI. Absent: scleral icterus, conjunctival injection, periorbital swelling ENT exam: Present: normal exam, normal oropharynx, mucous membranes moist Respiratory exam: Present: normal lung sounds bilaterally. Absent: respiratory distress, wheezes, rales, rhonchi, stridor Cardiovascular Exam: Present: regular rate, normal rhythm, normal heart sounds. Absent: systolic murmur, diastolic murmur, rubs, gallop, clicks GI/Abdominal exam: Present: soft, normal bowel sounds. Absent: distended, tenderness, guarding, rebound, rigid Extremities exam: Present: normal inspection, full ROM, normal capillary refill, other (Skin to the lower extremities is pink, warm, and dry. Cap refills less than 3 seconds. Pedal and posttibial pulses are 2+ and equal bilaterally). Absent: tenderness, pedal edema, joint swelling, calf tenderness Back exam: Present: normal inspection. Absent: paraspinal tenderness, vertebral tenderness Neurological exam: Present: alert, oriented X3, CN II-XII intact, other (Overal strength in all four extremities is 5/5. Dorsiflexion strength on the left 5/5, on the right 3/5. ) Expanded Motor strength exam: RUE: 5, LUE: 5, RLE: 5, LLE: 5 Psychiatric exam: Present: normal affect, normal mood Skin exam: Present: warm, dry, intact, normal color. Absent: rash Course Vital Signs 08/16/18 23:38 Temperature 98.3 F Pulse Rate 56 L Respiratory 16 Rate Blood Pressure 150/86 O2 Sat by Pulse 98 Oximetry Medical Decision Making - Medical Decision Making 67-year-old male patient presents to the emergency department today for evaluation of right low back pain with radiation down the right leg. Patient reports weakness to the right leg. Physical examination does reveal overall strength to the lower extremities of 50/5 however dorsiflexion strength in the right is 3/5 whereas the left is 5/5. He does report improvement of the weakness of the right leg after being on steroids for the last few days. Patient has no saddle anesthesia or loss of bowel or bladder control. He is afebrile. CT of the lumbar spine was obtained and did show mild spondylosis of L4 to 5 and L5 to S1 with mild foraminal narrowing. Patient was given anti-inflammatory, steroid, and [place] here in the emergency department. Upon reevaluation he does report pain is improved to a 2 out of 10 on the pain scale. Patient is able to ambulate. He does feel comfortable being discharged home at this time to follow-up outpatient. He is instructed to follow-up with the human resources support specialist for recheck as soon as possible. Return parameters were discussed in detail. He verbalizes understanding and agrees with this plan. - Radiology Data Radiology results: report reviewed, image reviewed CT of the lumbar spine without contrast was obtained. Report was reviewed in its entirety. Impression by Dr. Curtis shows no acute osseous traumatic injury or abnormal alignment. Disc spondylosis most significant L4 to L5 and L5 to S1. No significant osseous central canal stenosis or significant osseous neural foraminal narrowing. Disposition Clinical Impression: Lumbar radiculopathy, Right leg weakness Disposition: HOME SELF-CARE Condition: Good Instructions (If sedation given, give patient instructions): Lumbar Radiculopathy (ED), Lower Back Exercises (ED) Additional Instructions: Perform gentle range of motion to the low back. Take medications as directed. Follow-up with your primary care physician for recheck as soon as possible. Follow-up with reporting specialist for recheck as soon as possible. Return to the emergency department immediately for any new, worsening, or concerning symptoms. Prescriptions: Ibuprofen [Motrin] 600 mg PO Q8HR PRN #30 tab PRN Reason: Pain predniSONE 50 mg PO DAILY #5 tablet Is patient prescribed a controlled substance at d/c from ED?: No Referrals: Fredrick Vasquez DO [Primary Care Provider] - 1-2 days Tiffany Ho DO [Doctor of Osteopathic Medicine] - 1-2 days Time of Disposition: 02:01
== END 2018-08-17 02:13 | disposition home or self-care (01) ==
LOC: EC 23:28
DX: M47.26 Other spondylosis with radiculopathy, lumbar region (principal); M47.27 Other spondylosis with radiculopathy, lumbosacral region; M48.061 Spinal stenosis, lumbar region without neurogenic claudication; M48.07 Spinal stenosis, lumbosacral region; I48.91 Unspecified atrial fibrillation; E78.5 Hyperlipidemia, unspecified; I10 Essential (primary) hypertension; Z85.828 Personal history of other malignant neoplasm of skin; Z86.010 Personal history of colon polyps; Z98.890 Other specified postprocedural states; Z79.899 Other long term (current) drug therapy
CPT/HCPCS: 72131; 99283; 96372 ×2; J2930; J1885

== ENCOUNTER 2020-08-28 01:08 | Emergency (ER) | payer MEDICARE, OTHER ==
[2020-08-28 01:36] VITALS: BP 162/82; PULSE 70; RESP 18; TEMP 98.2
[2020-08-28] MEDS ORDERED: cefTRIAXone 1,000 MG VIAL (IM USE) IM STA (02:11)
[2020-08-28] MEDS ORDERED: AMOXIC-POT CLAV 875MG STARTER PACK 2 TAB BTL PO STA (02:11)
[2020-08-28] MEDS ORDERED: DIPH,PERTUS(ACELL)TETVAC-LF 0.5 ML VIAL IM ONE (02:20)
--- NOTE | 2020-08-28 02:23 | ED ---
General Adult HPI - General Chief complaint: Animal Bite Stated complaint: Cat bite on RT hand Time Seen by Provider: 08/28/20 01:47 Source: patient, RN notes reviewed Mode of arrival: ambulatory Limitations: no limitations - History of Present Illness Initial comments: 69-year-old male presents to the emergency room for a chief complaint of cat bite. Patient reports his uncles cat bit him on the right second digit about 12 hours prior to arrival. Reports that it started to get red so he came to the emergency room. Patient reports he did wash his wound thoroughly at that time. Patient states the cat is up-to-date on rabies immunizations.Patient has no other complaints at this time including shortness of breath, chest pain, abdominal pain, nausea or vomiting, headache, or visual changes. - Related Data Home Medications Medication Instructions Recorded Confirmed Atorvastatin [Lipitor] 10 mg PO DAILY 10/26/16 02/07/17 Fish Oil/Dha/Epa [Fish Oil 1,200 2 cap PO DAILY 10/26/16 02/07/17 mg Fish Oil] Multivitamins, Thera [Multivitamin 1 tab PO DAILY 10/26/16 02/07/17 (formulary)] Previous Rx's Medication Instructions Recorded Apixaban [Eliquis] 5 mg PO BID #30 tab 10/28/16 lisinopriL [Zestril] 5 mg PO DAILY #30 tab 10/28/16 Ibuprofen [Motrin] 600 mg PO Q8HR PRN #30 tab 08/17/18 predniSONE 50 mg PO DAILY #5 tablet 08/17/18 Amoxicillin/Potassium Clav 1 tab PO Q12HR #20 tab 08/28/20 [Augmentin 875-125 Tablet] Allergies Allergy/AdvReac Type Severity Reaction Status Date / Time No Known Allergies Allergy Verified 08/28/20 01:36 Review of Systems ROS Statement: Those systems with pertinent positive or pertinent negative responses have been documented in the HPI. ROS Other: All systems not noted in ROS Statement are negative. 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 History of Any Multi-Drug Resistant Organisms: None Reported Past Surgical History: Ablation, Hernia Repair Additional Past Surgical History / Comment(s): cardioversion 2008, cardiac ablation 2013, x2 cyst removed from neck, [id number]. squamous cell skin ca removed. Past Anesthesia/Blood Transfusion Reactions: Previous Problems w/ Anesthesia Additional Past Anesthesia/Blood Transfusion Reaction / Comment(s): took a while to wake up after aa Past Psychological History: No Psychological Hx Reported Smoking Status: Never smoker Past Alcohol Use History: None Reported Past Drug Use History: None Reported - Past Family History Father Additional Family Medical History / Comment(s): at age 48-got electrocuted. 2 uncles had cabgs Mother Family Medical History: Cancer Additional Family Medical History / Comment(s): at age 87 drom cervical cancer Brother(s) Family Medical History: Coronary Artery Disease (CAD) Additional Family Medical History / Comment(s): cabg General Exam Limitations: no limitations General appearance: alert, in no apparent distress Head exam: Present: atraumatic, normocephalic, normal inspection Eye exam: Present: normal appearance, PERRL, EOMI. Absent: scleral icterus, conjunctival injection, periorbital swelling ENT exam: Present: normal exam, mucous membranes moist Neck exam: Present: normal inspection. Absent: tenderness, meningismus, lymphadenopathy Respiratory exam: Present: normal lung sounds bilaterally. Absent: respiratory distress, wheezes, rales, rhonchi, stridor Cardiovascular Exam: Present: regular rate, normal rhythm, normal heart sounds. Absent: systolic murmur, diastolic murmur, rubs, gallop, clicks Extremities exam: Present: normal inspection (She has a small area of erythema noted on the palmar aspect of the right second digit proximal phalanx.), full ROM (Full range of motion of the right second digit including MCP, PIP, and DIP joint.), tenderness (Minimal tenderness over palmar aspect of the proximal phalanx of the right second digit. No tenderness distally to this along the tendon. No tenderness along the extensor tendons of the hand. No pain with extension of the right second digit. No fusiform swelling.), normal capillary refill (Capillary refill less than 2 seconds, radial pulse 2+ in the right upper extremity), other (No streaking redness up the right second digit.) Course Vital Signs 08/28/20 01:33 Temperature 98.2 F Pulse Rate 70 Respiratory 18 Rate Blood Pressure 162/82 O2 Sat by Pulse 98 Oximetry Medical Decision Making - Medical Decision Making Her stable. HPI physical exam is documented. As discussed patient has some erythema noted to the proximal phalanx of the right second digit however no s treaking redness. No tenderness along the flexor tendon of the right finger and right hand. Patient able to fully flex the finger. There is no fusiform swelling. X-ray showed mild narrowing and osteophytosis of the DIP of the second digit consistent with osteoarthritis. No acute fracture or dislocation identified. She given I am Rocephin and Augmentin. Tetanus updated. Cat was immunized for rabies. Patient will be discharged home. He will follow up with primary care. Disposition Clinical Impression: Cat bite Disposition: HOME SELF-CARE Condition: Good Instructions (If sedation given, give patient instructions): Animal Bite (ED) Additional Instructions: Please take antibiotic as directed. Please follow-up with your doctor in one to 2 days. Return to the emergency room if you have worsening symptoms such as fever, streaking redness, unable to bend finger, or any other worsening symptoms. Prescriptions: Amoxicillin/Potassium Clav [Augmentin 875-125 Tablet] 1 tab PO Q12HR #20 tab Is patient prescribed a controlled substance at d/c from ED?: No Referrals: Shashank Zhang DO [Primary Care Provider] - 1-2 days Time of Disposition: 02:40
--- NOTE | 2020-08-28 02:35 | XR ---
EXAM: XR Right Fingers, 2 or More Views CLINICAL HISTORY: ITS.REASON XR Reason: 2nd TECHNIQUE: Frontal, lateral and oblique views of the fingers of the right hand. COMPARISON: No relevant prior studies available. FINDINGS: Bones/joints: There is mild narrowing and osteophytosis of the distal interphalangeal joint of the second digit consistent with osteoarthritis. No acute fracture or dislocation is identified. Soft tissues: Unremarkable. No radiopaque foreign body. IMPRESSION: There is mild narrowing and osteophytosis of the distal interphalangeal joint of the second digit consistent with osteoarthritis. No acute fracture or dislocation is identified.
== END 2020-08-28 02:48 | disposition home or self-care (01) ==
LOC: EC 01:08
DX: S61.250A Open bite of right index finger without damage to nail, initial encounter (principal); I48.91 Unspecified atrial fibrillation; E78.5 Hyperlipidemia, unspecified; I10 Essential (primary) hypertension; W55.01XA Bitten by cat, initial encounter
CPT/HCPCS: 73140; 90715; 99283; 96372; 90471; J0696

== ENCOUNTER 2021-01-20 21:38 | Emergency (ER) | payer MEDICARE, OTHER ==
[2021-01-21 00:18] VITALS: RESP 18
--- NOTE | 2021-01-21 00:54 | ED ---
Eye Problem HPI - General Chief complaint: Eye Problems Stated complaint: seeing flashs of light in left eye Time Seen by Provider: 01/20/21 22:55 Source: patient, RN notes reviewed, old records reviewed Mode of arrival: ambulatory Limitations: no limitations - History of Present Illness Initial comments: This is a 70-year-old male DF for evaluation patient is floaters left eye floaters history of floaters in both eyes and today has had left eye flashes flashes of light. No headache no eye pain. 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 Going is his appointments trended towards normal. Patient has no other complaints no headache no traumas. MD chief complaint: vision change (Patient does have flashes of light left eye) -: hour(s) Onset Description: gradual Location: left eye Place: home If Injury: none Eye Symptoms: other (Flashes of light) Severity: mild Severity scale (1-10): 3 Consistency: intermittent Context: other (Mostly noticed when he turns his head to the left) Associated Symptoms: none Treatments Prior to Arrival: none - Related Data Home Medications Medication Instructions Recorded Confirmed Atorvastatin [Lipitor] 10 mg PO DAILY 10/26/16 02/07/17 Fish Oil/Dha/Epa [Fish Oil 1,200 2 cap PO DAILY 10/26/16 02/07/17 mg Fish Oil] Multivitamins, Thera [Multivitamin 1 tab PO DAILY 10/26/16 02/07/17 (formulary)] Previous Rx's Medication Instructions Recorded Apixaban [Eliquis] 5 mg PO BID #30 tab 10/28/16 lisinopriL [Zestril] 5 mg PO DAILY #30 tab 10/28/16 Ibuprofen [Motrin] 600 mg PO Q8HR PRN #30 tab 08/17/18 predniSONE 50 mg PO DAILY #5 tablet 08/17/18 Amoxicillin/Potassium Clav 1 tab PO Q12HR #20 tab 08/28/20 [Augmentin 875-125 Tablet] Allergies Allergy/AdvReac Type Severity Reaction Status Date / Time No Known Allergies Allergy Verified 01/20/21 21:52 Review of Systems ROS Statement: Those systems with pertinent positive or pertinent negative responses have been documented in the HPI. ROS Other: All systems not noted in ROS Statement are negative. 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 History of Any Multi-Drug Resistant Organisms: None Reported Past Surgical History: Ablation, Hernia Repair Additional Past Surgical History / Comment(s): cardioversion 2008, cardiac ablation 2013, x2 cyst removed from neck, [id number]. squamous cell skin ca removed. Past Anesthesia/Blood Transfusion Reactions: Previous Problems w/ Anesthesia Additional Past Anesthesia/Blood Transfusion Reaction / Comment(s): took a while to wake up after aa Past Psychological History: No Psychological Hx Reported Smoking Status: Never smoker Past Alcohol Use History: None Reported Past Drug Use History: None Reported - Past Family History Father Additional Family Medical History / Comment(s): at age 48-got electrocuted. 2 uncles had cabgs Mother Family Medical History: Cancer Additional Family Medical History / Comment(s): at age 87 drom cervical cancer Brother(s) Family Medical History: Coronary Artery Disease (CAD) Additional Family Medical History / Comment(s): cabg General Exam General appearance: alert, in no apparent distress Head exam: Present: atraumatic, normocephalic, normal inspection Eye exam: Present: normal appearance, PERRL, EOMI. Absent: scleral icterus, conjunctival injection, periorbital swelling ENT exam: Present: normal exam, mucous membranes moist Neck exam: Present: normal inspection. Absent: tenderness, meningismus, lymphadenopathy Respiratory exam: Present: normal lung sounds bilaterally. Absent: respiratory distress, wheezes, rales, rhonchi, stridor Cardiovascular Exam: Present: regular rate, normal rhythm, normal heart sounds. Absent: systolic murmur, diastolic murmur, rubs, gallop, clicks GI/Abdominal exam: Present: soft, normal bowel sounds. Absent: distended, tenderness, guarding, rebound, rigid Extremities exam: Present: normal inspection, full ROM, normal capillary refill. Absent: tenderness, pedal edema, joint swelling, calf tenderness Back exam: Present: normal inspection Neurological exam: Present: alert, oriented X3, CN II-XII intact Psychiatric exam: Present: normal affect, normal mood Skin exam: Present: warm, dry, intact, normal color. Absent: rash Course Vital Signs 01/20/21 01/21/21 21:48 00:16 Temperature 98.9 F Pulse Rate 71 58 L Respiratory 19 18 Rate Blood Pressure 183/84 141/85 O2 Sat by Pulse 98 97 Oximetry - Reevaluation(s) Reevaluation #1: 01/21/21 00:52 Medical record is reviewed Reevaluation #2: 01/21/21 00:52 Patient informed of neccessity to see ophthalmology morning, they're understanding Reevaluation #3: 01/21/21 00:53 Patient no longer wants to wait for possible information - Consultations Consultation #1: Attempts made to reach Dr. Hoover for follow-up, we'll continue throughout the night in the morning Disposition Clinical Impression: Floater, vitreous, Retinal detachment, left Narrative: r/o Retinal Detachment Disposition: HOME SELF-CARE Condition: Good Instructions (If sedation given, give patient instructions): Surgery for Retinal Detachment (DC), Visual Floaters (ED) Is patient prescribed a controlled substance at d/c from ED?: No Referrals: Elsie Hoover MD [STAFF PHYSICIAN] - 1-2 days
[2021-01-21 01:23] VITALS: BP 127/86; PULSE 53; TEMP 97.7
== END 2021-01-21 01:04 | disposition home or self-care (01) ==
LOC: EC 21:38
DX: H33.22 Serous retinal detachment, left eye (principal); H43.392 Other vitreous opacities, left eye; I10 Essential (primary) hypertension; E78.5 Hyperlipidemia, unspecified; I48.91 Unspecified atrial fibrillation; Z87.19 Personal history of other diseases of the digestive system; Z79.01 Long term (current) use of anticoagulants; Z79.1 Long term (current) use of non-steroidal anti-inflammatories (NSAID); Z79.52 Long term (current) use of systemic steroids
CPT/HCPCS: 99283

== ENCOUNTER → 2021-08-18 | Outpatient (CLI) | payer MEDICARE, OTHER ==
[2021-08-18 14:55] LABS: HCT 44.7 % (39.6-50.0); HGB 14.6 g/dL (13.0-17.0); MCH 28.6 pg (27.0-32.0); MCHC 32.7 g/dL (32.0-37.0); MCV 87.6 fL (80.0-97.0); NRBC Per 100 WBC 0 /100 WBCS (0.0-0.0); Platelet Count 212 X 10*3/uL (140-440); RDW 12.4 % (11.5-14.5); WBC 4.54 X 10*3/uL (4.50-10.00)
[2021-08-18 15:30] LABS: African American GFR (CKD) 90.3 (60.0-200.0); Anion Gap 12.4 mmol/L (10.00-18.00); Blood Urea Nitrogen 13.2 mg/dL (9.0-27.0); Carbon Dioxide 24.9 mmol/L (20.0-27.5); Non-African American GFR(CKD) 77.9 (60.0-200.0); Potassium 4.4 mmol/L (3.5-5.5)
[2021-08-20 12:37] LABS: Coronavirus SARS CoV-2 Not Detected (Not Detected)
== END | disposition home or self-care (01) ==
LOC: LABWHC1 10:08
PROVIDERS: ATTEND Internal Medicine Clinical Cardiac Electrophysiology
DX: Z01.812 Encounter for preprocedural laboratory examination (principal); Z20.822 Contact with and (suspected) exposure to COVID-19; I48.0 Paroxysmal atrial fibrillation
CPT/HCPCS: 80051; 82565; 84520; 85027; 36415; U0003; U0005

== ENCOUNTER 2021-08-22 06:12 | Day surgery (SDC) | payer MEDICARE, OTHER ==
[2021-08-18 10:01] VITALS: BMI 34.4
[2021-08-22] MEDS ORDERED: PROPOFOL 10 MG/ML 20 ML VIAL IV ONE (07:29)
[2021-08-22] MEDS ORDERED: HEPARIN SODIUM,PORCINE 10,000 UNIT/ML 1 ML VIAL ONE (07:29)
[2021-08-22] MEDS ORDERED: ePHEDrine 50 MG/ML 1 ML VIAL ONE (07:29)
[2021-08-22] MEDS ORDERED: PROTAMINE SULFATE 10 MG/ML 5 ML VIAL IV ONE (07:29)
[2021-08-22] MEDS ORDERED: SUCCINYLCHOLINE CHLORIDE 100 MG/5 ML SYR IV ONE (07:29)
[2021-08-22] MEDS ORDERED: MIDAZOLAM 2 MG/2 ML VIAL ONE (07:29)
[2021-08-22] MEDS ORDERED: fentaNYL (PF) 50 MCG/ML 2 ML AMP ONE (07:29)
[2021-08-22] MEDS ORDERED: ISOPROTERENOL 250 MCG/1.25 ML SYR IV ONE (07:29)
[2021-08-22] MEDS ORDERED: LIDOCAINE 1% INJ 10MG/ML (20 ML MDV) ONE ×2 (07:29→07:47)
[2021-08-22] MEDS: SODIUM CHLORIDE 0.9% 1,000 ML IV SCH (07:45)
[2021-08-22] MEDS ORDERED: HEPARIN SOD,PORK IN 0.45% NACL 25,000 UNIT in 0.45% NACL 1 250ML.BAG IV ONE (08:14)
[2021-08-22] MEDS ORDERED: LIDOCAINE 1% INJ 10MG/ML (20 ML MDV) SQ ONE (08:18)
[2021-08-22] MEDS ORDERED: IOPAMIDOL-370 100ML BTL INJ ONE (10:00)
--- NOTE | 2021-08-22 10:52 | P.HPCAR ---
History of Present Illness This is Dr. Cameron dictating an H/P on this patient The patient was interviewed and examined IMPRESSION / ASSESSMENT: Paroxysmal atrial fibrillation with RVR, very symptomatic episodes Atrial flutter, typical, status post RFA Sick Sinus Syndrome Hypertension Dyslipidemia Event monitor shows A. fib with RVR No evidence for ischemia on recent Lexiscan PLAN: Proceed with A. fib ablation, cryoablation of the pulmonary veins/PVI HPI Patient has symptomatic episodes of A. fib with RVR He also has underlying Sick Sinus Syndrome that protrudes antiarrhythmic drug therapy He complains of tiredness and fatigue during these episodes Hypertension is well controlled Recent stress test did not show any evidence for ischemia ROS: No fever chills or rigors, no cough, phlegm or expectoration, no nausea, vomiting or diarrhea, no hematuria, dysuria, no musculoskeletal complaints, no strokes or seizures, no skin lesions. EXAMINATION: Resting comfortably in bed afebrile 96.8F Pulse rate in the 70s Blood pressure 138/77 mmHg Breath sounds are clear no rhonchi no crackles Normal heart sounds normal S1 normal S2 no murmurs No JVD No lower extremity edema REVIEW OF LABS, ECG & MEDICAL DATA Medications reviewed He takes Zestril, atorvastatin and ELIQUIS 5 mg twice daily Physical Exam Vitals: Vital Signs Temp Pulse Resp BP BP Pulse Ox 08/22/21 10:40 79 16 140/79 99 08/22/21 10:27 96.8 F L 80 14 138/77 97 08/22/21 06:43 98.9 F 68 16 158/81 99 Intake and Output 08/21/21 08/22/21 08/22/21 22:59 06:59 14:59 Intake Total 221 Balance 221 Intake: IV 221 Other: Weight 108.5 kg Past Medical History Past Medical History: Atrial Fibrillation, Atrial Flutter, Cancer, Hyperlipidemia, Hypertension Additional Past Medical History / Comment(s): 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 Hx. of cat bite. See Dr. Cameron H & P. History of Any Multi-Drug Resistant Organisms: None Reported Past Surgical History: Ablation, Hernia Repair Additional Past Surgical History / Comment(s): cardioversion 2008, cardiac ablation 2013, x2 cyst removed from neck, [id number]. squamous cell skin ca removed. Past Anesthesia/Blood Transfusion Reactions: Previous Problems w/ Anesthesia Additional Past Anesthesia/Blood Transfusion Reaction / Comment(s): took a while to wake up after anesthesia. Smoking Status: Never smoker - Past Family History Father Additional Family Medical History / Comment(s): at age 48-got electrocuted. 2 uncles had cabgs Mother Family Medical History: Cancer Additional Family Medical History / Comment(s): at age 87 drom cervical cancer Brother(s) Family Medical History: Coronary Artery Disease (CAD) Additional Family Medical History / Comment(s): cabg Physical Examination Vital Signs Temp Pulse Resp BP BP Pulse Ox 08/22/21 10:40 79 16 140/79 99 08/22/21 10:27 96.8 F L 80 14 138/77 97 08/22/21 06:43 98.9 F 68 16 158/81 99 Intake and Output 08/21/21 08/22/21 08/22/21 22:59 06:59 14:59 Intake Total 221 Balance 221 Intake: IV 221 Other: Weight 108.5 kg Results Current Medications Generic Name Dose Route Start Last Admin Trade Name Freq PRN Reason Stop Dose Admin Sodium Chloride 1,000 mls @ 50 mls/hr 08/22/21 05:42 08/22/21 07:45 Saline 0.9% IV 09/21/21 05:43 200 mls .Q20H LIZETTE Administration Lactated Ringer's 1,000 mls @ 20 mls/hr 08/22/21 05:42 Lactated Ringers IV 09/21/21 05:43 .Q24H LIZETTE Intake and Output 08/21/21 08/22/21 08/22/21 22:59 06:59 14:59 Intake Total 221 Balance 221 Intake: IV 221 Other: Weight 108.5 kg
--- NOTE | 2021-08-22 11:03 | P.EPPROC ---
- EP Procedure Note Electrophysiology Procedure Note: PROCEDURE A. fib ablation/PVI DIAGNOSIS Atrial fibrillation, symptomatic, paroxysmal RESULT No left atrial appendage mass seen on intracardiac echo Successful A. fib ablation/pulmonary vein isolation of all veins using cryo- ablation Complete entrance block in all 4 veins confirmed No evidence for phrenic nerve injury Esophageal deflection NO PROCEDURE DETAILS Patient was brought to the EP lab in a fasting state after obtaining written informed consent. Procedure performed under general anesthesia Esophagus was intubated. Esophageal temperature monitoring with circa catheter. Esophageal deflection with an endoscope to avoid hypothermia of the esophagus. After initial muscle relaxant use, muscle relaxants were not given thereafter in order to assess phrenic nerve during procedure. Patient prepped and draped as per protocol Cryo ablation-set up with standard preparation of the cryoablation tools done. Femoral Venous access obtained on the right and left groins and sheaths placed Diagnostic catheters for the high right atrium, phrenic nerve stimulation and pacing, His bundle, coronary sinus placed Intracardiac echo catheter placed. Long sheath placed in the right atrium Left and right transseptal catheterization performed under intracardiac echo guidance. Intravenous heparin with aCT above 300 Later, catheter positioning and balloon positioning in the left atrium and pulmonary veins, under intracardiac echo guidance Diagnostic EP study with coronary sinus pacing and recording Baseline measurements: Sinus cycle length 06/03/2004 milliseconds, IN interval 196 ms, QRS 105 ms and QT interval 481 ms AH 82 and HV 37 ms Sinus recovery times at 600, 504 100 ms were 1702, 1162 and 1057 ms Prolonged sinus node recovery times and evidence of sinus node entrance block Isuprel used wide open. No atrial fibrillation at the end of the procedure Transseptal catheterization performed RA pressure 13/4/9 LA pressure 22/6/30 Transseptal catheterization performed with standard sheath. The cryoablation sheath was then placed with an over the wire exchange without any acute complications. The cryoablation balloon was placed in the office of each pulmonary vein and all 4 pulmonary veins were isolated. IV dye was injected to confirm occlusion. Goal: achieve complete occlusion of the pulmonary vein, achieve -30 degrees C at 30 seconds and achieve -40 degrees C at 60 seconds and a time to effect of less than 60 seconds. If not, the balloon was repositioned to obtain this result After completion of Cryoblation with durations from 180-240 seconds, entrance block was confirmed with the Attain circular catheter in a roving fashion around the antrum of the pulmonary veins Phrenic nerve pacing was performed from the SVC, right innominate vein area and diaphragm voltage was monitored. Diaphragmatic contractions were also monitored manually for strength of contraction. Complex pulmonary venous anatomy on all pulmonary veins as described below Ablation performed to isolate the pulmonary veins and the branches individually and segmentally Ablation performed to isolate the keysha and the posterior septum on the right side At the end of the procedure the Achieve catheter was once again used to check for entrance block Phrenic nerve stimulation was performed to confirm diaphragmatic stimulation the end of the procedure Cine fluoroscopy was performed at the very end of the procedure to confirm movement of both diaphragms with inspiration and expiration At the end of the procedure the patient was extubated Venous sheaths were removed and hemostasis assured with a closure device PROCEDURES PERFORMED Diagnostic EP study CS pacing and recording Left and right transseptal catheterization Catheter the mapping of the tachycardia Intracardiac echocardiography Pulmonary vein isolation with transseptal and comprehensive EPS, 79862 Drug infusion, +10816 Extended duration/increased procedural stenosis This was a long procedure than usual primarily on account of the anatomy of the pulmonary veins, that required isolation of individual pulmonary vein branch on account of their size & tortuosity The left-sided pulmonary veins had a common os with an intermediate bifurcation into the left superior and left inferior Both these veins were quite large Segmental isolation was performed and the ostial level and then the antral complete isolation The right-sided anatomy was also complex line the right inferior pulmonary vein had 2 very large branches with early bifurcation from the os that were independently isolated The right superior vein had 3 branches The superior to branches were isolated with a single lesion The inferior branch of the right superior was isolated separately to ablate the anterior keysha and posterior septum
--- NOTE | 2021-08-22 11:06 | P.PRLE ---
RE: Yaw Brewster Dear Jayeshnia Tidwell underwent A. fib ablation with pulmonary vein isolation successfully Previously he is undergone typical atrial flutter ablation Family this results in the significant reduction in his A. fib rate in He does of underlying sick sinus syndrome and therefore antiplatelet drugs would be problematic He will continue ELIQUIS lifelong Thank you for entrusting me with the care of the patient Warm regards Sincerely Juve Cameron
[2021-08-22] MEDS ORDERED: ACETAMINOPHEN IV (For NPO) 1,000 MG in EMPTY BAG 1 BAG IVPB ONE (11:07)
[2021-08-22] MEDS ORDERED: ACETAMINOPHEN TAB 325 MG TAB PO PRN (11:07)
--- NOTE | 2021-08-22 11:10 | P.PCN ---
Preoperative Diagnosis: Intracardiac echo utilized to evaluate the pericardium left atrial appendage In addition we were able to visualize the left main ostium which is completely open without any obvious stenosis The circumflex vessel in its proximal portion was visualized. This calcification without stenosis The LAD could not be visualized
[2021-08-22] MEDS: LACTATED RINGERS 1,000 ML IV SCH (13:58)
[2021-08-22] MEDS ORDERED: ATORVASTATIN 20 MG TAB PO SCH (21:00)
[2021-08-22] MEDS: APIXABAN 5 MG TAB PO SCH (22:36)
[2021-08-23] MEDS: SODIUM CHLORIDE 0.9% 1,000 ML IV SCH (02:53)
[2021-08-23] MEDS: LACTATED RINGERS 1,000 ML IV SCH (02:53)
[2021-08-23] MEDS ORDERED: lisinopriL 10 MG TAB PO SCH (09:00)
[2021-08-23] MEDS: APIXABAN 5 MG TAB PO SCH (09:46)
[2021-08-23 10:04] VITALS: BP 137/80; RESP 18; TEMP 97.8
[2021-08-23 10:13] VITALS: PULSE 64
--- NOTE | 2021-08-24 08:22 | P.DS ---
Providers Attending physician: Juve Cameron Primary care physician: Shashank Prior Hospital Course: Patient is doing well. Mild cough No chest discomfort no dizziness no lightheadedness Groins healing well oh hematoma Vitals are stable No JVD On examination blood pressure 121/60 mmHg pulse rate in the 70s afebrile Impression Paroxysmal atrial fibrillation with RVR, symptomatic Status post cryoablation of the pulmonary veins Complex pulmonary venous anatomy requiring selective cryoablation of the large pulmonary venous branches for each vein Patient got to the procedure well without any acute complications Plan Continue and granulation Continue all other cardiac medications and follow Dr. Cameron week post discharge Patient is stable for discharge Incentive spirometry recommended Plan - Discharge Summary Discharge Rx Participant: Yes New Discharge Prescriptions: No Action Multivitamins, Thera [Multivitamin (formulary)] 1 tab PO DAILY Atorvastatin [Lipitor] 20 mg PO HS Apixaban [Eliquis] 5 mg PO BID #30 tab RX: lisinopriL [Zestril] 30 mg PO DAILY Ascorbic Acid [Vitamin C] 1 tab PO DAILY Discharge Medication List Atorvastatin [Lipitor] 20 mg PO HS 10/26/16 [History] Multivitamins, Thera [Multivitamin (formulary)] 1 tab PO DAILY 10/26/16 [History] Apixaban [Eliquis] 5 mg PO BID #30 tab 10/28/16 [Rx] Ascorbic Acid [Vitamin C] 1 tab PO DAILY 08/18/21 [History] RX: lisinopriL [Zestril] 30 mg PO DAILY 08/18/21 [History] Follow up Appointment(s)/Referral(s): Juve Cameron MD [STAFF PHYSICIAN] - 1 Week (Office to call with appoinment date and time.) Patient Instructions/Handouts: A-fib (Atrial Fibrillation) (DC), Cardiac Ablation (DC) Discharge Disposition: HOME SELF-CARE
== END 2021-08-23 12:30 | disposition home or self-care (01) ==
LOC: CATHEP 06:12 → 6NMEDSUR 10:11 → CATHEP 08-23 12:30
PROVIDERS: ATTEND Internal Medicine Clinical Cardiac Electrophysiology
DX: I48.0 Paroxysmal atrial fibrillation (principal); I48.92 Unspecified atrial flutter; I49.5 Sick sinus syndrome; I10 Essential (primary) hypertension; E78.5 Hyperlipidemia, unspecified; I47.2 Ventricular tachycardia; Z82.49 Family history of ischemic heart disease and other diseases of the circulatory system; Z98.890 Other specified postprocedural states; Z79.01 Long term (current) use of anticoagulants; Z79.899 Other long term (current) drug therapy; Z88.8 Allergy status to other drugs, medicaments and biological substances
CPT/HCPCS: 93623; 93656; C1894 ×2; C1769 ×4; C1760 ×2; C1730 ×2; C1759; C1893; C1733; C1766; J2250; J2720; J1644 ×2; J2001; J3010; J0330; J2704; Q9967

== ENCOUNTER 2024-05-10 10:17 | Emergency (ER) | payer MEDICARE, OTHER ==
[2024-05-10] MEDS: ORPHENADRINE 30 MG/ML 2 ML VIAL IM STA (10:59)
--- NOTE | 2024-05-10 11:05 | ED ---
Upper Extremity HPI - General Chief Complaint: Extremity Injury, Upper Stated Complaint: R shoulder pain Time Seen by Provider: 05/10/24 11:04 Source: patient, RN notes reviewed Mode of arrival: ambulatory Limitations: no limitations - History of Present Illness Initial Comments: 73-year-old male presented to ER with a chief complaint of right shoulder pain. Patient reports last week he accidentally tripped while walking up the stairs and put his right arm out to brace his fall. He reports since then he has been endorsing pain to his right shoulder with decreased range of motion. States yesterday while walking up his stairs he on ice and jolted his shoulder again. Patient has been reporting a sore discomfort since then. He has tried over-the- counter ibuprofen without relief. Denies any paresthesias. No head injury. No other complaints. No neck pain, chest pain or shortness of breath. - Related Data Home Medications Medication Instructions Recorded Confirmed Atorvastatin [Lipitor] 20 mg PO HS 10/26/16 08/22/21 Multivitamins, Thera [Multivitamin 1 tab PO DAILY 10/26/16 08/22/21 (formulary)] Ascorbic Acid [Vitamin C] 1 tab PO DAILY 08/18/21 08/22/21 lisinopriL [Zestril] 30 mg PO DAILY 08/18/21 08/22/21 Previous Rx's Medication Instructions Recorded Apixaban [Eliquis] 5 mg PO BID #30 tab 10/28/16 Cyclobenzaprine [Flexeril] 10 mg PO TID PRN #15 tab 05/10/24 Allergies Allergy/AdvReac Type Severity Reaction Status Date / Time propranolol AdvReac Unknown Verified 05/10/24 10:28 Review of Systems ROS Statement: Those systems with pertinent positive or pertinent negative responses have been documented in the HPI. ROS Other: All systems not noted in ROS Statement are negative. 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 Hx. of cat bite. See Dr. Cameron H & P. History of Any Multi-Drug Resistant Organisms: None Reported Past Surgical History: Ablation, Hernia Repair Additional Past Surgical History / Comment(s): cardioversion 2008, cardiac ablation 2013, x2 cyst removed from neck, [id number]. squamous cell skin ca removed. Past Anesthesia/Blood Transfusion Reactions: Previous Problems w/ Anesthesia Additional Past Anesthesia/Blood Transfusion Reaction / Comment(s): took a while to wake up after anesthesia. Past Psychological History: No Psychological Hx Reported Smoking Status: Never smoker - Past Family History Father Additional Family Medical History / Comment(s): at age 48-got electrocuted. 2 uncles had cabgs Mother Family Medical History: Cancer Additional Family Medical History / Comment(s): at age 87 drom cervical cancer Brother(s) Family Medical History: Coronary Artery Disease (CAD) Additional Family Medical History / Comment(s): cabg General Exam Limitations: no limitations General appearance: alert, in no apparent distress Neck exam: Present: normal inspection. Absent: tenderness, meningismus, lymphadenopathy Respiratory exam: Present: normal lung sounds bilaterally. Absent: respiratory distress, wheezes, rales, rhonchi, stridor Cardiovascular Exam: Present: regular rate, normal rhythm, normal heart sounds. Absent: systolic murmur, diastolic murmur, rubs, gallop, clicks Extremities exam: Present: normal inspection, normal capillary refill (2+ right radial pulse), other (Limited active shoulder flexion and extension ) Neurological exam: Present: alert, oriented X3, CN II-XII intact Skin exam: Present: warm, dry, intact, normal color. Absent: rash Course Vital Signs 05/10/24 05/10/24 10:26 11:48 Temperature 98.4 F 98.1 F Pulse Rate 71 74 Respiratory 16 18 Rate Blood Pressure 143/74 132/75 O2 Sat by Pulse 99 97 Oximetry Medical Decision Making - Medical Decision Making Was pt. sent in by a medical professional or institution (, PA, EMPLOYEE BENEFITS ATTORNEY, urgent care, hospital, or senior care...) When possible be specific @ -No Did you speak to anyone other than the patient for history (EMS, parent, family, police, friend...)? What history was obtained from this source @ -No Did you review nursing and triage notes (agree or disagree)? Why? @ -I reviewed and agree with nursing and triage notes Were old charts reviewed (outside hosp., previous admission, EMS record, old EKG, old radiological studies, urgent care reports/EKG's, senior care records)? Report findings @ -No old charts were reviewed Differential Diagnosis (chest pain, altered mental status, abdominal pain women, abdominal pain men, vaginal bleeding, weakness, fever, dyspnea, syncope, headache, dizziness, GI bleed, back pain, seizure, CVA, palpatations, mental health, musculoskeletal)? @ -Differential Musculoskeletal: Muscular strain, contusion, ligament sprain, fracture, arthritis, septic arthritis, bursitis, cellulitis, muscle spasm, nerve compression, DVT, arterial occlusion, herpes zoster, electrolyte abnormality, tumor.... This is not meant to be in all inclusive list EKG interpreted by me (3pts min.). @ -None done X-rays interpreted by me (1pt min.). @ -Right shoulder xray interpreted by me negative for fractures or dislocations. CT interpreted by me (1pt min.). @ -None done U/S interpreted by me (1pt. min.). @ -None done What testing was considered but not performed or refused? (CT, X-rays, U/S, lab s)? Why? @ -None What meds were considered but not given or refused? Why? @ -None Did you discuss the management of the patient with other professionals (professionals i.e. , PA, EMPLOYEE BENEFITS ATTORNEY, lab, RT, psych nurse, social media marketer, trumpet player, teacher, evp and chief operating officer, outsole caser)? Give summary @ -No Was smoking cessation discussed for >3mins.? @ -No Was critical care preformed (if so, how long)? @ -No Were there social determinants of health that impacted care today? How? (Homelessness, low income, unemployed, alcoholism, drug addiction, transportation, low edu. Level, literacy, decrease access to med. care, care home, rehab)? @ -No Was there de-escalation of care discussed even if they declined (Discuss DNR or withdrawal of care, Hospice)? DNR status @ -No What co-morbidities impacted this encounter? (DM, HTN, Smoking, COPD, CAD, Cancer, CVA, ARF, Chemo, Hep., AIDS, mental health diagnosis, sleep apnea, morbid obesity)? @ -None Was patient admitted / discharged? Hospital course, mention meds given and route, prescriptions, significant lab abnormalities, going to OR and other pertinent info. @ -Discharge. 73-year-old male presented to ER for evaluation of right shoulder pain and limited ROM s/p fall. History and physical exam completed. Vitals stable. Patient no signs of acute distress. Patient is neurovascular intact. There is no focal bony tenderness. Patient has limited range of active ROM. Patient given IM Norflex as symptoms believed to be musculoskeletal. X-rays negative. There is possible acute inflammation indicating joint fluid. Patient reports mild improvement after muscle relaxer. Patient discharged with muscle relaxers and instructed to follow-up with orthopedics for further evaluation and treatment. Patient is stable for discharge upon reevaluation. Strict return parameters discussed. Patient discharged in stable condition with follow-up to PCP. Patient verbally expressed understanding and agreement with care plan. Case discussed with ED attending, Dr. Godfrey. Undiagnosed new problem with uncertain prognosis? @ -No Drug Therapy requiring intensive monitoring for toxicity (Heparin, Nitro, Insulin, Cardizem)? @ -No Were any procedures done? @ -No Diagnosis/symptom? @ -Shoulder sprain Acute, or Chronic, or Acute on Chronic? @ -Acute Uncomplicated (without systemic symptoms) or Complicated (systemic symptoms)? @ -Uncomplicated Side effects of treatment? @ -No Exacerbation, Progression, or Severe Exacerbation? @ -No Poses a threat to life or bodily function? How? (Chest pain, [place], [place], pneumonia, PE, COPD, DKA, ARF, appy, cholecystitis, CVA, Diverticulitis, Homicidal, Suicidal, threat to staff... and all critical care pts) @ -No - Radiology Data Radiology results: report reviewed, image reviewed Disposition Clinical Impression: Shoulder sprain Disposition: HOME SELF-CARE Condition: Stable Instructions (If sedation given, give patient instructions): Shoulder Sprain (ED) Additional Instructions: Continue taking aeff-bsn-snefqsi ibuprofen and Tylenol. Take Flexeril as prescribed. Follow-up with orthopedics. Return to the ER for any new or worsening concerns. Prescriptions: Cyclobenzaprine [Flexeril] 10 mg PO TID PRN #15 tab PRN Reason: Muscle Spasm Is patient prescribed a controlled substance at d/c from ED?: No Referrals: ,DO Shashank [Primary Care Provider] - 1-2 days Alli Retana MD [STAFF PHYSICIAN] - 1-2 days Time of Disposition: 11:32
--- NOTE | 2024-05-10 11:16 | XR ---
Right shoulder HISTORY: Pain for days. COMPARISON: None TECHNIQUE: 3 views of the right shoulder were obtained. FINDINGS: There is no fracture or dislocation. There is no focal intraosseous abnormality. The glenohumeral tanner nt is well-preserved. There is at least moderate degeneration of the AC joint and there is the suggestion of some adjacent soft tissue swelling possibly indicating joint fluid. IMPRESSION: Moderate degenerative change of the AC joint with possible acute inflammation described above. No ot her significant abnormality. [facility], , 05/10/2024 11:14 AM
[2024-05-10 11:50] VITALS: BP 132/75; PULSE 74; RESP 18; TEMP 98.1
== END 2024-05-10 11:52 | disposition home or self-care (01) ==
LOC: EC 10:17
DX: S43.401A Unspecified sprain of right shoulder joint, initial encounter (principal); Z88.8 Allergy status to other drugs, medicaments and biological substances; W10.9XXA Fall (on) (from) unspecified stairs and steps, initial encounter; Y93.01 Activity, walking, marching and hiking
CPT/HCPCS: 73030; 99283; 96372; J2360

== ENCOUNTER 2024-08-18 22:24 | Emergency (ER) | payer MEDICARE, OTHER ==
[2024-08-18 22:43] VITALS: RESP 16
--- NOTE | 2024-08-18 22:50 | ED ---
Arrhythmia/Palpitations HPI - General Chief Complaint: Arrhythmia/Palpitations Stated Complaint: Irregular Heartrate Time Seen by Provider: 08/18/24 22:47 Source: patient Mode of arrival: ambulatory Limitations: no limitations - History of Present Illness Initial Comments: This patient is a 73-year-old man who presents with complaint that he had an episode of atrial fibrillation. Patient states that he has longstanding history of atrial fibrillation though usually in sinus rhythm. He has previously had 2 ablations. The patient does take anticoagulant but no rate control at baseline. Patient states that the episode came on and he counted his heart rate as high as 170. He does have metoprolol and he took 12.5 mg but the symptoms continued so he took another 12.5 mg and then proceeded to come here. He states that he has subsequently noticed that the heart rate has slowed. He denies having any associated symptoms. Patient states that he sees Dr. Krishen. WELCH Complaint: rapid heart beat -: hour(s) Context: occurred during rest Arrhythmia History: atrial fibrillation Associated Symptoms: denies other symptoms Treatments Prior to Arrival: beta-carola - Related Data Home Medications Medication Instructions Recorded Confirmed Atorvastatin [Lipitor] 20 mg PO HS 10/26/16 08/22/21 Multivitamins, Thera [Multivitamin 1 tab PO DAILY 10/26/16 08/22/21 (formulary)] Ascorbic Acid [Vitamin C] 1 tab PO DAILY 08/18/21 08/22/21 lisinopriL [Zestril] 30 mg PO DAILY 08/18/21 08/22/21 Previous Rx's Medication Instructions Recorded Apixaban [Eliquis] 5 mg PO BID #30 tab 10/28/16 Cyclobenzaprine [Flexeril] 10 mg PO TID PRN #15 tab 05/10/24 Allergies Allergy/AdvReac Type Severity Reaction Status Date / Time propranolol AdvReac Unknown Verified 08/18/24 22:29 Review of Systems ROS Statement: Those systems with pertinent positive or pertinent negative responses have been documented in the HPI. ROS Other: All systems not noted in ROS Statement are negative. Constitutional: Denies: fever, chills Respiratory: Denies: cough, dyspnea Cardiovascular: Reports: palpitations. Denies: chest pain, edema, syncope Gastrointestinal: Denies: abdominal pain, nausea, vomiting Genitourinary: Denies: dysuria, hematuria Musculoskeletal: Denies: back pain Skin: Denies: rash, lesions Neurological: Denies: headache, weakness Past Medical History Past Medical History: Atrial Fibrillation, Atrial Flutter, Cancer, Hyperlipidemia, Hypertension Additional Past Medical History / Comment(s): 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 Hx. of cat bite. See Dr. Cameron H & P. History of Any Multi-Drug Resistant Organisms: None Reported Past Surgical History: Ablation, Hernia Repair Additional Past Surgical History / Comment(s): cardioversion 2008, cardiac ablation 2013, x2 cyst removed from neck, [id number]. squamous cell skin ca removed. Past Anesthesia/Blood Transfusion Reactions: Previous Problems w/ Anesthesia Additional Past Anesthesia/Blood Transfusion Reaction / Comment(s): took a while to wake up after anesthesia. Past Psychological History: No Psychological Hx Reported Smoking Status: Never smoker Past Alcohol Use History: None Reported Past Drug Use History: None Reported - Past Family History Father Additional Family Medical History / Comment(s): at age 48-got electrocuted. 2 uncles had cabgs Mother Family Medical History: Cancer Additional Family Medical History / Comment(s): at age 87 drom cervical c ancer Brother(s) Family Medical History: Coronary Artery Disease (CAD) Additional Family Medical History / Comment(s): cabg General Exam Limitations: no limitations General appearance: alert, in no apparent distress Head exam: Present: atraumatic, normocephalic Eye exam: Present: normal appearance. Absent: scleral icterus, conjunctival injection Neck exam: Present: normal inspection Respiratory exam: Present: normal lung sounds bilaterally. Absent: respiratory distress, wheezes, rales, rhonchi, stridor, accessory muscle use Cardiovascular Exam: Present: regular rate, normal rhythm, normal heart sounds. Absent: systolic murmur, diastolic murmur, rubs, gallop GI/Abdominal exam: Present: soft. Absent: distended, tenderness, guarding, rebound, rigid, mass Extremities exam: Present: normal inspection, normal capillary refill. Absent: pedal edema, calf tenderness Back exam: Present: normal inspection. Absent: CVA tenderness (R), CVA tenderness (L) Neurological exam: Present: alert Skin exam: Present: warm, dry, intact, normal color. Absent: rash Course Vital Signs 08/18/24 08/18/24 08/19/24 22:26 22:39 00:23 Temperature 97.8 F 98.5 F Pulse Rate 65 64 57 L Respiratory 18 16 16 Rate Blood Pressure 171/99 150/94 123/83 O2 Sat by Pulse 99 96 96 Oximetry EKG Findings - EKG Comments: EKG Findings:: Possible old septal infarct. - EKG Results: EKG: interpreted by ERMD, sinus rhythm (Rate 61 bpm) - Dysrhythmias: Sinus rhythms and dysrhythmias: sinus rhythm - Blocks, [place], Hypertrophy, ST Abn: AV and intraventricular conduction: right bundle branch block (fi xed/intermittent, complete/incomplete) (Incomplete) Medical Decision Making - Medical Decision Making The patient had chest x-ray that I interpreted as negative for acute infiltrate, pneumothorax, congestive heart failure Was pt. sent in by a medical professional or institution (, ANDREW, GRAIN OILSEED OR PASTURE FARM WORKER, urgent care, hospital, or custodial...) When possible be specific @ -[No] Did you speak to anyone other than the patient for history (EMS, parent, family, police, friend...)? What history was obtained from this source @ -[No] Did you review nursing and triage notes (agree or disagree)? Why? @ -[I reviewed and agree with nursing and triage notes] Were old charts reviewed (outside hosp., previous admission, EMS record, old EKG, old radiological studies, urgent care reports/EKG's, custodial records)? Report findings @ -[No old charts were reviewed] Differential Diagnosis (chest pain, altered mental status, abdominal pain women, abdominal pain men, vaginal bleeding, weakness, fever, dyspnea, syncope, headache, dizziness, GI bleed, back pain, seizure, CVA, palpatations, mental health, musculoskeletal)? @ -[Differential Palpitations Ventricular arrhythmias, atrial arrhythmias, myocardial infarction, anemia, thyrotoxicosis, electrolyte imbalance, hypokalemia, pulmonary embolism, pulmonary disease, drugs, alcohol, anxiety, stress.... This is not meant to be an all-inclusive list. EKG interpreted by me (3pts min.). @ -[I interpreted as above] X-rays interpreted by me (1pt min.). @ -I interpreted as above CT interpreted by me (1pt min.). @ -[None done] U/S interpreted by me (1pt. min.). @ -[None done] What testing was considered but not performed or refused? (CT, X-rays, U/S, labs)? Why? @ -[None] What meds were considered but not given or refused? Why? @ -[None] Did you discuss the management of the patient with other professionals (professionals i.e. DrJose Guadalupe, PA, GRAIN OILSEED OR PASTURE FARM WORKER, lab, RT, psych nurse, health care social worker, applications architect, teacher, corporate security officer, casework supervisor)? Give summary @ -[No] Was smoking cessation discussed for >3mins.? @ -[No] Was critical care preformed (if so, how long)? @ -[No] Were there social determinants of health that impacted care today? How? (Homelessness, low income, unemployed, alcoholism, drug addiction, transportation, low edu. Level, literacy, decrease access to med. care, mcc, rehab)? @ -[No] Was there de-escalation of care discussed even if they declined (Discuss DNR or withdrawal of care, Hospice)? DNR status @ -[No] What co-morbidities impacted this encounter? (DM, HTN, Smoking, COPD, CAD, Cancer, CVA, ARF, Chemo, Hep., AIDS, mental health diagnosis, sleep apnea, morbid obesity)? @ -[History of atrial fibrillation Was patient admitted / discharged? Hospital course, mention meds given and route, prescriptions, significant lab abnormalities, going to OR and other pertinent info. @ -[Patient is 73-year-old man with history of previous atrial fibrillation who presented with complaint of palpitations. Patient back in sinus rhythm. He is feeling better and would like to go home. Discussed appropriate further care and follow-up as well as return parameters Undiagnosed new problem with uncertain prognosis? @ -[No] Drug Therapy requiring intensive monitoring for toxicity (Heparin, Nitro, Insulin, Cardizem)? @ -[No] Were any procedures done? @ -[No] Diagnosis/symptom? @ -[Paroxysmal atrial fibrillation Acute, or Chronic, or Acute on Chronic? @ -[default] Uncomplicated (without systemic symptoms) or Complicated (systemic symptoms)? @ -[Uncomplicated Side effects of treatment? @ -[No] Exacerbation, Progression, or Severe Exacerbation? @ -[No] Poses a threat to life or bodily function? How? (Chest pain, [place], [place], pneumonia, PE, COPD, DKA, ARF, appy, cholecystitis, CVA, Diverticulitis, Homicidal, Suicidal, threat to staff... and all critical care pts) @ -[No] All treatments are based on ideal body weight as in ED triage - Lab Data Result diagrams: 08/18/24 22:58 08/18/24 22:58 Lab Results 08/18/24 08/18/24 08/18/24 Range/Units 22:58 22:58 22:58 WBC 7.3 (3.8-10.6) k/uL RBC 4.92 (4.30-5.90) m/uL Hgb 14.3 (13.0-17.5) gm/dL Hct 42.3 (39.0-53.0) % MCV 86.0 (80.0-100.0) fL MCH 29.0 (25.0-35.0) pg MCHC 33.8 (31.0-37.0) g/dL RDW 12.8 (11.5-15.5) % Plt Count 197 (150-450) k/uL MPV 7.9 Neutrophils % 60 % Lymphocytes % 29 % Monocytes % 7 % Eosinophils % 1 % Basophils % 0 % Neutrophils # 4.4 (1.3-7.7) k/uL Lymphocytes # 2.1 (1.0-4.8) k/uL Monocytes # 0.5 (0-1.0) k/uL Eosinophils # 0.1 (0-0.7) k/uL Basophils # 0.0 (0-0.2) k/uL PT 11.4 (10.0-12.5) sec INR 1.0 (<1.2) APTT 27.0 (22.0-30.0) sec Sodium 139 (137-145) mmol/L Potassium 4.5 (3.5-5.1) mmol/L Chloride 105 (98-107) mmol/L Carbon Dioxide 27 (22-30) mmol/L Anion Gap 7 mmol/L BUN 15 (9-20) mg/dL Creatinine 0.87 (0.66-1.25) mg/dL Est GFR (CKD-EPI)AfAm >90 (>60 ml/min/1.73 sqM) Est GFR (CKD-EPI)NonAf 85 (>60 ml/min/1.73 sqM) Glucose 108 H (74-99) mg/dL Calcium 9.5 (8.4-10.2) mg/dL Magnesium 2.1 (1.6-2.3) mg/dL Total Bilirubin 0.8 (0.2-1.3) mg/dL AST 27 (17-59) U/L ALT 23 (4-49) U/L Alkaline Phosphatase 55 (38-126) U/L Troponin I (0.000-0.034) ng/mL Total Protein 7.2 (6.3-8.2) g/dL Albumin 4.2 (3.5-5.0) g/dL 08/18/24 Range/Units 22:58 WBC (3.8-10.6) k/uL RBC (4.30-5.90) m/uL Hgb (13.0-17.5) gm/dL Hct (39.0-53.0) % MCV (80.0-100.0) fL MCH (25.0-35.0) pg MCHC (31.0-37.0) g/dL RDW (11.5-15.5) % Plt Count (150-450) k/uL MPV Neutrophils % % Lymphocytes % % Monocytes % % Eosinophils % % Basophils % % Neutrophils # (1.3-7.7) k/uL Lymphocytes # (1.0-4.8) k/uL Monocytes # (0-1.0) k/uL Eosinophils # (0-0.7) k/uL Basophils # (0-0.2) k/uL PT (10.0-12.5) sec INR (<1.2) APTT (22.0-30.0) sec Sodium (137-145) mmol/L Potassium (3.5-5.1) mmol/L Chloride (98-107) mmol/L Carbon Dioxide (22-30) mmol/L Anion Gap mmol/L BUN (9-20) mg/dL Creatinine (0.66-1.25) mg/dL Est GFR (CKD-EPI)AfAm (>60 ml/min/1.73 sqM) Est GFR (CKD-EPI)NonAf (>60 ml/min/1.73 sqM) Glucose (74-99) mg/dL Calcium (8.4-10.2) mg/dL Magnesium (1.6-2.3) mg/dL Total Bilirubin (0.2-1.3) mg/dL AST (17-59) U/L ALT (4-49) U/L Alkaline Phosphatase (38-126) U/L Troponin I <0.012 (0.000-0.034) ng/mL Total Protein (6.3-8.2) g/dL Albumin (3.5-5.0) g/dL Disposition Clinical Impression: Paroxysmal atrial fibrillation Disposition: HOME SELF-CARE Condition: Good Instructions (If sedation given, give patient instructions): A-fib (Atrial Fibrillation) (ED) Is patient prescribed a controlled substance at d/c from ED?: No Referrals: Shashank Zhang DO [Primary Care Provider] - 1-2 days
[2024-08-18 23:14] LABS: Basophils % (A) 0 %; Eosinophils # (A) 0.1 k/uL (0-0.7); Eosinophils % (A) 1 %; HCT 42.3 % (39.0-53.0); HGB 14.3 gm/dL (13.0-17.5); Lymphocytes # (A) 2.1 k/uL (1.0-4.8); Lymphocytes % (A) 29 %; MCHC 33.8 g/dL (31.0-37.0); Mean Platelet Volume 7.9; Monocytes # (A) 0.5 k/uL (0-1.0); Monocytes % (A) 7 %; Neutrophils # (A) 4.4 k/uL (1.3-7.7); Neutrophils % (A) 60 %; Platelet Count 197 k/uL (150-450); RBC 4.92 m/uL (4.30-5.90); RDW 12.8 % (11.5-15.5); WBC 7.3 k/uL (3.8-10.6)
[2024-08-18 23:32] LABS: Prothrombin Time 11.4 sec (10.0-12.5)
[2024-08-18 23:47] LABS: ALT 23 U/L (4-49); AST 27 U/L (17-59); African American GFR (CKD) >90 (>60 ml/min/1.73 sqM); Albumin 4.2 g/dL (3.5-5.0); Alkaline Phosphatase 55 U/L (38-126); Anion Gap 7 mmol/L; Blood Urea Nitrogen 15 mg/dL (9-20); Calcium 9.5 mg/dL (8.4-10.2); Carbon Dioxide 27 mmol/L (22-30); Chloride 105 mmol/L (98-107); Glucose 108 mg/dL (74-99); Magnesium 2.1 mg/dL (1.6-2.3); Non-African American GFR(CKD) 85 (>60 ml/min/1.73 sqM); Potassium 4.5 mmol/L (3.5-5.1); Sodium 139 mmol/L (137-145); Total Bilirubin 0.8 mg/dL (0.2-1.3); Total Protein 7.2 g/dL (6.3-8.2)
[2024-08-19 00:27] VITALS: BP 123/83; PULSE 57; TEMP 98.5
--- NOTE | 2024-08-19 02:33 | XR ---
EXAM: XR Chest, 2 Views CLINICAL HISTORY: ITS.REASON XR Reason: dysrhythmia TECHNIQUE: Frontal and lateral views of the chest. COMPARISON: No relevant prior studies available. FINDINGS: Lungs: Unremarkable. No consolidation. Pleural space: Unremarkable. No pneumothorax. Heart: Unremarkable. No cardiomegaly. Mediastinum: Unremarkable. Bones/joints: Unremarkable. IMPRESSION: No consolidation.
== END 2024-08-19 00:27 | disposition home or self-care (01) ==
LOC: EC 22:24
DX: I48.0 Paroxysmal atrial fibrillation (principal); I48.91 Unspecified atrial fibrillation; I45.10 Unspecified right bundle-branch block; Z88.8 Allergy status to other drugs, medicaments and biological substances
CPT/HCPCS: 36415; 71046; 80053; 83735; 84484; 85025; 85610; 85730; 93005; 99285